=== PATIENT | male | born 1955 | race Caucasian/White ===

== ENCOUNTER 2024-03-17 03:44 | Inpatient (IN) | payer MEDICARE, SELFPAY ==
[2024-03-16 21:31] VITALS: BP 149/81
[2024-03-16] MEDS: TYLENOL/FEVERALL 650 MG RECTAL (21:38)
[2024-03-16 21:46] LABS: % Basophils 0.3 % (0-2); % Eosinophils 0.1 % (0-6); % Lymphocytes 6.8 % (20.5-51.1); % Neutrophils 88.8 % (42.2-75.2); Absolute Basophils 0.1 10^3/uL (0-0.2); Absolute Immature Granulocytes 0.2 10^3/uL (0-0.05); Absolute Monocytes 0.5 10^3/uL (0.1-0.6); Absolute Neutrophils 13.4 10^3/uL (1.4-6.5); Hematocrit 42.5 % (39.0-52.0); Hemoglobin 15.9 g/dL (13.0-18.0); Mean Corp Hgb Conc. 37.4 g/dL (33.0-37.0); Mean Corpuscular Hgb 31.9 pg (27.0-31.0); Mean Corpuscular Volume 85.3 fL (80.0-94.0); Mean Platelet Volume 9.1 fL (7.4-10.4); Nucleated Red Blood Cells % 0 % (-); Platelet Count 215 10^3/uL (130-400); Red Blood Cell Count 4.98 10^6/uL (4.70-6.10); Red Cell Dist. Width 13.2 % (11.5-14.5); White Blood Cell Count 15.1 10^3/uL (4.8-10.8)
[2024-03-16] MEDS: ATIVAN 0.5 MG IV ×2 (21:53→23:09)
--- NOTE | 2024-03-16 21:56 | ED.GENMED ---
History of Present Illness
General
Chief Complaint: Fever
Source: patient and ambulance crew
Exam Limitations: none
Time Seen by Provider: 03/16/24 21:38
Nursing documentation reviewed up to this point in time: agreed with
Travel History
Have you had any contact with someone who has COVID-19?: Unable to Answer
Do you have any symptoms of coronavirus? Fever > 100 degrees, chills, cough, shortness of breath, sore throat, loss of taste or smell, muscle aches, or headache?: Unable to Answer
History of Present Illness
History of Present Illness:
68-year-old male presents emergency department from home. He has had a fever for the past few days, and has increased confusion today. He cannot give a history.
Past History
Past History
ED Past Medical History: None
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
Social History
Tobacco: Smoker
Alcohol: Occasional
Drug: None
Personal:
Living: with family
Employment: Employed
Family History
Family History: CAD; Negative Early CAD, Cancer or Sudden
Review of Systems
Review of Systems
Allergies reviewed?: Yes
All Other Systems: Not applicable
Constitutional: Reports fever
ABD/GI: Reports diarrhea
Neurological: Reports other (Confusion)
Phy Exam
Physical Exam
Physical Exam:
Physical Exam
General: Agitated, fever 105.1
Neck: supple. no meningeal signs. normal posterior pharynx
Heart: s1/s2 regular rate and rhythm, no murmur. equal radial
pulses.
HEENT: Pupils equal round reactive to light, EOMI
Lungs: no acute respiratory distress. clear bilaterally
Abdomen: normal bowel sounds. not tender. no CVAT
Neuro: alert to person. no focal neurological deficits cranial nerves II through XII intact
Skin: no rash
Psychiatric: Agitated, not cooperative but redirectable
Extremities: no edema. no calf tenderness. negative homans. good distal pulses
Course
Orders/Labs/Results
Orders:
Orders
03/16/24 21:34
Electrocardiogram (*1) Urgent
Reason for Study: Other
Other Reason for Exam: Possible Sepsis
Cardiac Monitoring- Treatment ONCE
EKG- Treatment ONCE
IV Insert/Care/Rem.- Treatment PRN
O2 Therapy [RESP] Urgent
Titrate/Wean O2 to maintain O2 sat greater than (%): 93
Special Instructions: TO MAINTAIN CONTINUOUS O2 SATS > OR = 93%
Pulse Ox/cont/shift [RESP] Urgent
Quantity: 1
Special Instructions: CONTINUOUS
03/16/24 21:37
Complete Blood Count/With Diff Urgent
Comprehensive Metabolic Panel Urgent
Lactic Acid Q4H
Comment: ON ICE, CANCEL 2ND ORDER IF FIRST LACTIC ACID LEVEL <2
Serum Osmolality Urgent
Comment: ADD ON
Acetaminophen [Tylenol/Feverall] 650 mg .ROUTE .STK-MED ONE
03/16/24 21:38
Acetaminophen [Tylenol/Feverall] 650 mg RECTAL NOW STA
03/16/24 21:51
Lorazepam [Ativan] 2 mg .ROUTE .STK-MED ONE
03/16/24 21:52
Lorazepam [Ativan] 0.5 mg IV NOW STA
03/16/24 21:54
CR Chest Portable - 1 View Urgent
Comment:
Reason For Exam: fever
Reason Study Needs to be Portable: Patient Unstable
03/16/24 21:56
COVID-19 Antigen Urgent
Source: Nasal Swab
Blood Culture Q30M
LISETTE Source: Blood/Venous
Specimen Description:
Comment: FROM 2 SEPARATE SITES
Blood Culture Q30M
[place]TE Source: Blood/Venous
Specimen Description:
Comment: FROM 2 SEPARATE SITES
Influenza A+B Rapid Molecular Urgent
LISETTE Source: Nasal Swab
Specimen Description:
03/16/24 22:01
Osmolality, Random Urine Urgent
Date Specimen was Collected: 03/16/24
Time Specimen was Collected: 22:00
Comment: ADD ON
Urinalysis Reflex To Culture Urgent
Date Specimen was Collected: 03/16/24
Time Specimen was Collected: 22:00
Urine Microscopic Reflex Cult Urgent
Urine Sodium Urgent
Date Specimen was Collected: 03/16/24
Time Specimen was Collected: 22:00
Comment: ADD ON
Urine Culture Urgent
LISETTE Source: U
Specimen Description:
Date Specimen was Collected: 03/16/24
Time Specimen was Collected: 22:00
03/16/24 22:30
Add On- LAB Urgent
Tests Added?: urine sodium, urine osmolality, serum osmolality
03/16/24 22:49
CT Head W/o Iv Contrast Urgent
Comment:
Reason For Exam: confusion, bruising on nose
03/16/24 23:04
Lorazepam [Ativan] 0.5 mg IV NOW STA
03/17/24 00:06
Cefepime HCl [Maxipime] 2,000 mg IV NOW STA
03/17/24 00:10
Sterile Water [Sterile Water For Injection] 10 ml .ROUTE .STK-MED ONE
03/17/24 00:28
Vancomycin [Vancocin] 1,500 mg 0.9% Sodium Chloride [Nss] 20 ml 0.9% Sodium Chloride 250 ml [Nss] 250 ml IV NOW
03/17/24 01:00
3% Sodium Chloride 250 ml [Sodium Chloride 3%] 250 ml IV ONCE
Acetaminophen [Tylenol/Feverall] 650 mg RECTAL NOW STA
03/17/24 02:02
CPK [Creatine Phosphokinase] Urgent
03/17/24 02:03
Legionella Urinary Antigen Urgent
LISETTE Source: Urine
Specimen Description:
Strep pneumoniae Antigen Urgent
LISETTE Source: Urine
Specimen Description:
03/17/24 02:33
Admit/Transfer Patient As Directed
Co-Sign Provider:
Level of Care: Inpatient admission
Assign to:: ICU
Physician / Group: Iván
Diagnosis: Sepsis, Acute TME, Hyponatremia
Reason for Hospitalization: Sepsis, Acute TME
Expected length of stay greater than two midnights?: Yes
ELOS- Estimated Length of Stay in days: 4
I certify the patient meets the requirements for IP care: Yes
03/17/24 02:37
Code Status As Directed
Resuscitation Status: Full Code
Abnormal Lab Results
03/16/24 03/16/24
21:37 22:01
WBC 15.1 H 10^3/uL
(4.8-10.8)
MCH 31.9 H pg
(27.0-31.0)
MCHC 37.4 H g/dL
(33.0-37.0)
Abs Immat Gran (auto) 0.2 H 10^3/uL
(0-0.05)
Absolute Neuts (auto) 13.4 H 10^3/uL
(1.4-6.5)
Absolute Lymphs (auto) 1.0 L 10^3/uL
(1.2-3.4)
Immature Gran % 1.0 H %
(0-0.5)
Neutrophils % 88.8 H %
(42.2-75.2)
Lymphocytes % 6.8 L %
(20.5-51.1)
Sodium 120 L mmol/L
(135-145)
Chloride 89 L mmol/L
(98-107)
Carbon Dioxide 19 L mmol/L
(22-30)
Glucose 142 H mg/dl
(70-99)
Serum Osmolality 253 L mOsm/kg
(275-300)
AST 71 H U/L
(17-59)
Urine Ketones Trace A
(Negative)
Ur Occult Blood Reflex 4+ A
(Negative)
Urine Bilirubin 1+ A
(Negative)
Urine Urobilinogen 2+ A
(Neg - 1+)
Urine Bacteria (Reflex) Many A
(Negative)
Urine Albumin (Reflex) 1+ A
(Neg - Trace)
03/16/24 21:37
03/16/24 21:37
Vital Signs
Initial and Last Documented VS:
Initial Vital Signs
Temp Pulse Resp BP Pulse Ox
105.1 F H 123 30 149/81 96
03/16/24 21:31 03/16/24 21:31 03/16/24 21:31 03/16/24 21:31 03/16/24 21:31
Last Documented Vital Signs
Temp Pulse Resp BP Pulse Ox
102.7 F H 104 37 148/67 94
03/17/24 02:46 03/16/24 22:30 03/16/24 22:15 03/16/24 22:00 03/16/24 22:30
*EKG
Interpreted by ED Provider?: Yes
EKG Intrepretation Date: 03/16/24
EKG Intrepretation Time: 21:42
Interpretation: abnormal
Comparison EKG: no comparison EKG present
Heart Rate: 125
Rate: tachycardiac
Rhythm: sinus tachycardia
[place]: normal axis
Interval: normal interval
QRS Pattern: normal QRS
Ischemia: non-specific ST changes
*Knowledge Analyst Interpretation
Rate: tachycardiac
Interpretation: abnormal
Heart Rate: 115
Rhythm: sinus tachycardia
*Critical Care Note
Total Time (30-74mins, 75-104mins- exclusive of procedures): 30
comment:
Critical care statement: A total of 30 minutes of critical care time was provided for this patient. This includes management of unstable vital signs, evaluation of the patient at bedside, reviewing the patient's pertinent medical records, discussion
with consultants, review of old EKGs and review of pertinent medical records. This time with separate from time utilized to perform the aforementioned documented procedures
Patient Management
Social determinants of health affecting care: Living situation
Discussion with other providers: Hospitalist
Escalation/DeEscalation of care consider admission/obs:
Admit indicated
ED Attending Note
-
Portions of this chart may have been created with voice recognition software.� Occasional wrong word or��sound alike� substitutions may have occurred due to the inherent limitations of voice recognition software.
Discharge Plan
Departure
Patient Disposition: Admit
Date of Disposition: 03/17/24
Time of Disposition: 00:09
Admit to: ICU
Presentation/result/management discussed w/ accepting MD/DO: Hospitalist
Patient with high blood pressure during this ER visit?: Yes
Condition: Fair
Discharge Problem:
Acute hyponatremia, Pneumonia, Altered mental status, Fever
Prescriptions:
No Action
No Current Medications
0
Referrals:
UNKNOWN - PT NOT,INTERVIEWE [Family Provider] -
Interventions
Interventions:
*Risk Screen - Suicide Last Done: 03/16/24 21:31
*General Assessment Last Done: 03/16/24 21:31
*Neglect/Abuse Screening Last Done: 03/16/24 21:31
ED- Fall Risk Assessment Last Done: 03/16/24 22:07
*ED COVID-19 Vaccine History Last Done: 03/16/24 21:31
ED- Neurological Assessment Last Done: 03/16/24 22:07
ED-Skin Assessment Last Done: 03/16/24 22:07
Discharge Date and Time
Print Language: SLOVAK
[2024-03-16 21:58] LABS: Lactic Acid 1.4 mmol/L (0.7-2.0)
[2024-03-16 22:00] VITALS: BP 148/67
[2024-03-16 22:05] LABS: ALT (SGPT) 38 U/L (0-50); AST (SGOT) 71 U/L (17-59); Albumin 3.8 g/dl (3.5-5.0); Alkaline Phosphatase 83 U/L (38-126); Blood Urea Nitrogen 13 mg/dl (9-20); Calcium 8.7 mg/dl (8.4-10.2); Carbon Dioxide 19 mmol/L (22-30); Chloride 89 mmol/L (98-107); Glucose 142 mg/dl (70-99); Sodium 120 mmol/L (135-145); Total Bilirubin 0.8 mg/dl (0.2-1.3); Total Protein 6.9 g/dl (6.3-8.2); eGFR > 60.00
[2024-03-16 22:12] LABS: Urine Albumin 1+ (Neg - Trace); Urine Bilirubin 1+ (Negative); Urine Character Clear (Clear); Urine Color Yellow; Urine Glucose Negative (Negative); Urine Ketone Trace (Negative); Urine Leukocyte Negative (Negative); Urine Nitrite Negative (Negative); Urine Occult Blood 4+ (Negative); Urine Urobilinogen 2+ (Neg - 1+)
[2024-03-16 22:21] LABS: Urine Red Blood Cell 0-2 /HPF (0-2)
[2024-03-16 22:24] LABS: Urine Bacteria Many (Negative)
[2024-03-16 22:32] LABS: COVID-19 Antigen Negative (Negative)
[2024-03-16 22:40] LABS: Osmolality Urine 801 mOsm/kg (300-900)
[2024-03-16 22:50] LABS: Osmolality Serum 253 mOsm/kg (275-300)
[2024-03-16 23:12] VITALS: BP 102/49
[2024-03-16 23:36] LABS: Urine Sodium 81 mmol/L (30-90)
[2024-03-16 23:47] VITALS: BP 90/52
[2024-03-17] VITALS (27 sets, daily range): BP systolic 85–128; BP diastolic 38–87; BMI 24.3; BMI 23.2
[2024-03-17] MEDS: MAXIPIME 2000 MG IV ×2 (00:45→07:25)
[2024-03-17] MEDS: VANCOCIN 300 ML IV (00:46)
[2024-03-17] MEDS: SODIUM CHLORIDE 3% 250 IV (00:46)
[2024-03-17] MEDS: VANCOCIN 300 MG IV (00:46)
[2024-03-17] MEDS: TYLENOL/FEVERALL 650 MG RECTAL (01:06)
--- NOTE | 2024-03-17 02:43 | HPS.HSE ---
Family Physician
-
Family Physician: INTERVIEWE UNKNOWN - PT NOT
Chief Complaint
-
Confusion / Agitation
History of Present Illness
Patient is a 68y M with no significant PMH who presents to ED for evaluation of confusion and falls. History obtained from family at the bedside and discussion with ED staff.
Family notes that patient began to have symptoms including cough, fevers and aches this past weekend. He presumed he had the flu and drank Gatorade, took Tylenol, etc with some relief in his symptoms. His initial cough seemed to improve per
family; however, patient continued to complain of feeling 'sick'. Patient then developed diarrhea / loose stools and had an episode of incontinence yesterday.
Today, he went to work as usual and seemed his usual self according to family.
This afternoon his returned home to find him very confused and somewhat agitated. Patient was trying to put on a blanket as if it were his pants. He was speaking gibberish / nonsense.
He was unsteady on his feet and had a total of 3 falls at home. He had two additional episodes of loose stools / incontinence at some point during the day.
Patient has had no recent travel. There are no known sick contacts.
He takes no daily medications.
Medical History
Past Medical History
Past Medical History: Reports None
Past Surgical History: Reports Other
Additional Past Surgical History:
Hernia Repair (12/2023)
Social History
Tobacco: Smoker (Current every day smoker. 1 ppd for > 50 pack years total use.)
Alcohol: None
Drug: None
Personal:
Living: With Family
Family History
Family History: Other (Father: CAD, CHF Mother: Lung Cancer)
Allergies / Home Medications
Allergies reflects when Allergies were last updated in [facility].
Home Medications with original date entered in [facility]
Allergy/Medication List:
Allergies
Allergy/AdvReac Type Severity Reaction Status Date / Time
Sulfa (Sulfonamide Allergy Unknown Unknown Verified 03/16/24 22:56
Antibiotics)
[Sulfa(Sulfonamide
Antibiotics)]
Home Medications
No Meds [No Current Medications] 03/16/24
Review of Systems
-
History Source: Family
A 12 point ROS was completed and negative except as noted: Yes
Constitutional: Reports Fever and Fatigue; Denies Chills
EENT: Denies Sore Throat
Respiratory: Reports Cough; Denies Trouble Breathing
Cardiac: Denies Chest Pain or Palpitations
Abdomen/GI: Reports Nausea, Diarrhea and Anorexia; Denies Abdominal Pain or Vomiting
: Denies Dysuria, Frequency or Flank Pain
Neurological: Reports Other (Falls at home / gait disturbance.)
Psych: Denies Depression or Anxiety
Physical Exam
Vital Signs
Vital Signs
Temp Pulse Resp BP Pulse Ox
104.7 F H 104 37 148/67 94
03/16/24 23:08 03/16/24 22:30 03/16/24 22:15 03/16/24 22:00 03/16/24 22:30
Physical Exam
General: Other (68y M acutely ill-appearing. Confused and mildly agitated / restless.)
HEENT: Other (Dry MM. No JVD or adenopathy.)
Respiratory: Other (Scattered coarse breath sounds. No wheezing.)
Cardiac: S1/S2 and Tachycardia; No Murmur
GI: Soft, Non Tender, Non Distended and Normal Bowel Sounds
Musculoskeletal: No Clubbing, No Cyanosis and No Edema
Neuro: Other (Confused, lethargic. Restless. No focal abnormalities. Moves all extremities.)
Laboratory Results
-
03/16/24 21:37
03/16/24 21:37
Laboratory Results
Lactic Acid 1.4 mmol/L (0.7-2.0) 03/16/24 21:37
Total Bilirubin 0.8 mg/dl (0.2-1.3) 03/16/24 21:37
AST 71 U/L (17-59) H 03/16/24 21:37
ALT 38 U/L (0-50) 03/16/24 21:37
Alkaline Phosphatase 83 U/L (38-126) 03/16/24 21:37
Impression/Plan
-
A/P: Patient is a 68y M with no noted PMH who presents to ED with abrupt onset confusion and unsteady gait this afternoon after recent illness.
Sepsis
Acute TME secondary to the above
- Admit to ICU for further evaluation and treatment.
- Patient presents with fever to 105, leukocytosis, tachycardia and tachypnea.
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
- COVID and influenza are negative in the ED - though symptoms / presentation certainly c/w severe viral syndrome.
- Broad spectrum abx coverage for now.
- Follow-up culture data and adjust as able.
- Add on stool studies given recent diarrhea / incontinence.
- ID evaluation for additional recommendations.
- If mental status does not improve despite antipyretics, would consider LP.
- Supportive care including antipyretics, antiemetics.
- Would bolus IVFs for any developing hypotension - though initial lactate level was normal.
- Follow for any new symptoms and / or clinical changes.
Hyponatremia
- Na = 120 with no prior history of hyponatremia.
- Seems most likely secondary to SIADH secondary to sepsis, recent increased fluid intake, etc.
- CT head was unremarkable.
- Presenting symptoms: confusion, ataxia, etc - potentially secondary to fever / sepsis versus hyponatremia or - more likely - a combination thereof.
- 3% saline recommended by Nephrology. Repeat Na level 4 AM and adjust fluids as needed.
- As noted above, would administer volume if needed for BP / perfusion in setting of sepsis.
- Check TFTs, cortisol, etc.
'Hematuria'
- 4+ blood on UA with negative RBCs on micro.
- Mildly elevated AST on labs.
- Check CPK for evidence of significant rhabdomyolysis.
- As above, may require IVFs / volume replacement for additional treatment if this is the case.
DVT Prophylaxis: Lovenox
Code Status: Full
[2024-03-17 03:44] LABS: Creatine Phosphokinase 399 U/L (55-170)
--- NOTE | 2024-03-17 04:37 | PTCARENOTE ---
Addendum entered by Leticia Ferris RN 03/17/24 04:43:
3% saline infusing through right forearm INT.
Original Note:
Rec'd patient from the ED. Patient drowsy but arousable. Answering questions appropriately. Patient states no recollection of how he got here or prior events. Currently AAOx3. ST on tele monitor with PACs and PVCs. Vitals stable. Lung sounds
diminished throughout. Pulse ox 92% on RA. Tachypneic with RR in the 30's. Denies dyspnea. +BS. No BM. Skin assessed. Abrasions noted on nose and left ear from prior falls. Scabbed and open to air. Patient denies pain. Bed alarm on and safe
environment maintained. Repeat Na sent.
[2024-03-17 04:41] LABS: Hematocrit 45.5 % (39.0-52.0); Hemoglobin 16.1 g/dL (13.0-18.0); Mean Corp Hgb Conc. 35.4 g/dL (33.0-37.0); Mean Corpuscular Hgb 31.3 pg (27.0-31.0); Mean Corpuscular Volume 88.3 fL (80.0-94.0); Mean Platelet Volume 9.4 fL (7.4-10.4); Platelet Count 184 10^3/uL (130-400); Red Blood Cell Count 5.15 10^6/uL (4.70-6.10); Red Cell Dist. Width 13.1 % (11.5-14.5); White Blood Cell Count 17.2 10^3/uL (4.8-10.8)
[2024-03-17] MEDS: VIBRAMYCIN 260 MG IV (05:01)
[2024-03-17 05:03] LABS: INR 1.21; PT 15.4 Sec (11.4-14.6)
[2024-03-17 05:13] LABS: ALT (SGPT) 51 U/L (0-50); AST (SGOT) 89 U/L (17-59); Albumin 3.4 g/dl (3.5-5.0); Alkaline Phosphatase 67 U/L (38-126); Blood Urea Nitrogen 15 mg/dl (9-20); Calcium 8.2 mg/dl (8.4-10.2); Carbon Dioxide 19 mmol/L (22-30); Chloride 96 mmol/L (98-107); Direct Bilirubin 0.6 mg/dl (0.0-0.4); Estimated Creatinine Clearance 94 ml/min; Glucose 109 mg/dl (70-99); Magnesium 1.4 mg/dl (1.6-2.3); Potassium 3.8 mmol/L (3.5-5.1); Sodium 122 mmol/L (135-145); Total Bilirubin 0.9 mg/dl (0.2-1.3); Total Protein 6.5 g/dl (6.3-8.2); eGFR > 60.00
[2024-03-17 05:20] LABS: Troponin I 0.042 ng/ml
[2024-03-17 05:38] LABS: Cortisol, Random 54.7 ug/dl; TSH Reflex To Free T4 1.03 uIU/ml (0.47-4.68)
[2024-03-17] MEDS: MAGNESIUM SULFATE 50 IV (06:13)
--- NOTE | 2024-03-17 07:13 | PTCARENOTE ---
0700 patient received in bed. AAO x3 Denies pain. Denies Nausea. Neuro check WNL; BP via left upper arm : 112/81 ST 102 RR 31; 91-94RA. oral temp 100.4; peripheral lines RT arm #18 : NSS 3% at 25/hr; Left arm : flushed, capped. Lungs clear. No
edema. call ngo within reach
--- NOTE | 2024-03-17 07:15 | CON.INTV ---
Consultation
Consultation Request
Date/Time Consultation Requested: 03-17-24
Date/Time Consultation Performed: 03-17-24
Requesting Provider: Hospitalist zoraida
Performing Provider: Dr Jimenes
Reason for Consultation: confusion
Medical History
-
Chief Complaint: confusion
History of Present Illness:
Mr Ramses Rg is a 68/M adm 03-16 with acute confusion and falls at home. Reportedly developed cough, fever and aches over the weekend, thought he had the flu and took OTC APAP with some relief, then developed diarrhea. Returned from work on
03-16, found by very confused, somewhat agitated and with nonsensical talk, sustained up to 3 falls at home, presented diarrhea with fecal incontinence. Besides h/o splenectomy at age 14 (trauma), ankle surgeries, hernia repair in Dec 2023 and
heavy smoking, no other PMH, not on prescribed meds. At ER, fever 104.7, mild tachycardia, tachypnea, hypertension, serum Na 120
Seen at ICU, MS back to normal, receiving 3% saline IV
Denies dyspnea, reports chronic smoker's cough with no recent change. Not on outpatient prescribed meds. Heavy smoking for last 50+y. 4 decades work in [employer]
Denies abd pain, diarrhea has subsided
Denies recent use of atbs
Past Medical History
Past Surgical History: Other (hernia repair. Splenectomy)
Social History
Tobacco: Smoker
Alcohol: Other (marijuana)
Drug: None
Personal:
Living: With Family
Employment: Employed
Family History
Family History: CAD (F: CAD, CHF) and Cancer (M: lung)
Allergies / Home Medications
Allergies
Allergy/AdvReac Type Severity Reaction Status Date / Time
Sulfa (Sulfonamide Allergy Unknown Unknown Verified 03/16/24 22:56
Antibiotics)
[Sulfa(Sulfonamide
Antibiotics)]
Home Medications
�Medication �Instructions �Recorded �Confirmed �Last Taken �Type
No Meds [No Current Medications] 03/16/24 03/16/24 Unknown History
Review of Systems
-
History Source: Patient
All other systems: Negative unless noted
Abdomen/GI: Diarrhea
Neuro: Weakness
Vitals / Labs / Diagnostic Testing
Vital Signs
Temp Pulse Resp BP Pulse Ox
100.4 F H 110 32 110/78 93
03/17/24 07:10 03/17/24 06:00 03/17/24 06:00 03/17/24 06:00 03/17/24 06:00
Lab Data
03/17/24 04:30
03/17/24 04:30
Laboratory Results
03/17/24
04:30
PT 15.4 H
INR 1.21
APTT 35.0
Microbiology
03/16/24 21:56 Nasal Swab Influenza Types A & B (ALISON) - Final
Negative for Influenza A & B, NAAT
Negative results must be combined with clinical observations
and patient history.
Nucleic Acid Amplification test (NAAT)performed on the
[facility] platform.
Diagnostic Testing:
Physical Exam
-
HEENT: Normocephalic and Moist Mucous Membranes
Cardiovascular: Regular Rhythm, Murmur (n), Peripheral Edema and JVD
Respiratory: Rhonchi and Non-Labored Respirations
GI: Soft, Non Distended and Non Tender
Neurology: Awake, AO x 3 and No Motor Deficits
Skin: Warm
General: Respiratory Distress (n)
Assessment
-
Assessment:
Mr Ramses Rg is a 68/M adm 03-16 with acute confusion and falls at home. Reportedly developed cough, fever and aches over the weekend, thought he had the flu and took OTC APAP with some relief, then developed diarrhea. Returned from work on
03-16, found by very confused, somewhat agitated and with nonsensical talk, sustained up to 3 falls at home, presented diarrhea with fecal incontinence. Besides h/o splenectomy at age 14 (trauma), ankle surgeries, hernia repair in Dec 2023 and
heavy smoking, no other PMH, not on prescribed meds. At ER, fever 104.7, mild tachycardia, tachypnea, hypertension, serum Na 120
Impression:
Severe hyponatremia
TME
GPC chains bacteriemia, unknown source
Elevated PCT
Mild transaminitis, ^CK
Troponin elevation
Normal TSH and random cortisol
Hematuria, bacteriuria, albuminuria
COVID/flu negative
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
Ankle surgeries
Hernia repair in Dec 2023
Smoker: 1 ppd for 50+ y
Marijuana smoking
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 Denies sandblasting, mining, quarrying, ceramic work
Plan:
O2 protocol as needed
Currently resp mares comfortable on RA
Asp precs
Monitor MS, seems has recovered to normal at this juncture
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
Blood cxs with GPC chains, unkown source
UCx, MRSA screening pending
Sputum cx ordered
Elevated PCT
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
Empiric atbs started: cefepime, vanco, doxy IV
May need chest CT
Note h/o splenectomy
ID consulted
Continue 3% saline IV
Follow serum Na closely
Laureen>40 and Uosm>100, normal TSH c/w SAIDH of unknown etiology
Not on medications which could cause SAIDH, but tobacco dependence
SIADH in this case could be secondary to pulmonary disease or malignancy
Check UDS, HIV
Renal consulted
Regular diet
Enoxaparin DVT proph
Needs to follow with [facility] upon d/c
D/w Mr and Mrs Rg and their son at bedside
Critical care time: 35 min
[2024-03-17] MEDS: PROTONIX IV 40 MG IV (07:24)
[2024-03-17] MEDS: TYLENOL 650 MG PO ×2 (07:24→21:30)
[2024-03-17] MEDS: NSS (PRESERVATIVE FREE) 10 ML IV (07:25)
[2024-03-17] MEDS: STERILE WATER FOR INJECTION 10 ML IV (07:25)
--- NOTE | 2024-03-17 07:58 | W.PN.HOSP.TC ---
Today's Communication/Plan
-
see A/P
Assessment / Plan
Assessment / Plan
HPI: 68y M with no significant PMH who presented to ED for evaluation of confusion and falls. History obtained from family at the bedside and discussion with ED staff.
Family notes that patient began to have symptoms including cough, fevers and aches this past weekend. He presumed he had the flu and drank Gatorade, took Tylenol, etc with some relief in his symptoms. His initial cough seemed to improve per
family; however, patient continued to complain of feeling 'sick'. Patient then developed diarrhea / loose stools and had an episode of incontinence.
On DOA, he went to work as usual and seemed his usual self according to family.
In the afternoon his returned home to find him very confused and somewhat agitated. Patient was trying to put on a blanket as if it were his pants. He was speaking gibberish / nonsense.
He was unsteady on his feet and had a total of 3 falls at home. He had two additional episodes of loose stools / incontinence at some point during the day.
Patient has had no recent travel. There are no known sick contacts.
He takes no daily medications.
A/P:
# Sepsis POA. Patient presented with fever to 105, leukocytosis, tachycardia and tachypnea.
# Acute TME secondary to the above
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 There are no acute intracranial abnormalities.
Admit to ICU for further evaluation and treatment.
Potential sources of infection include pulmonary v INPATIENT SERVICES RN v others.
COVID and influenza are negative in the ED - though symptoms / presentation certainly c/w severe viral syndrome.
Check procal, follow blood Cx, urine Cx, Lyme serology
Urine Legionella/Strep Ag negative
Add on stool studies given recent diarrhea / incontinence.
Cont Broad spectrum abx coverage for now with cefepime/vancomycin
ID evaluation for additional recommendations.
If mental status does not improve despite antipyretics, would consider LP.
Cont supportive care including antipyretics, antiemetics.
# Hyponatremia, no prior history of hyponatremia.
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
CT head was unremarkable.
Na on admission 120, today at 122
3% saline recommended by Nephrology.
TSH and random cortisol level WNL
# Mild rhabdomyolysis
CPK slightly elevated at 399, can start IVF
trend CPK
# Non-ischemic myocardial injury
Pt denies to CP
Trend trop until peak
# Hypomagnesemia
replete IV
# Elevated LFT likely reactive
trend LFT
DVT Prophylaxis: Lovenox
Code Status: Full
DW RN
updated on the phone
CC Mx for severe hyperthermia and infectious work up
total time spent 51 min
Anticipated Discharge: > 48 hours
Subjective/Interval History
-
Date of Service: March 17, 2024
Objective Data
-
Labs:
Laboratory Results
03/16/24 03/17/24 03/17/24
21:37 04:30 04:30
WBC 15.1 H 17.2 H
Hgb 15.9 16.1
Hct 42.5 45.5
Plt Count 215 184
PT 15.4 H
INR 1.21
APTT 35.0
Sodium 120 L Cancelled 122 L
Potassium 4.0 3.8
Chloride 89 L 96 L
Carbon Dioxide 19 L 19 L
BUN 13 15
Creatinine 0.9 0.8
Glucose 142 H 109 H
Calcium 8.7 8.2 L
Total Bilirubin 0.8 0.9
AST 71 H 89 H
ALT 38 51 H
Alkaline Phosphatase 83 67
Vital Signs:
Vital Signs
Temp Pulse Resp BP Pulse Ox
38.0 C H 99 32 112/81 90
03/17/24 07:10 03/17/24 07:45 03/17/24 07:45 03/17/24 07:00 03/17/24 07:45
I&O
03/16/24 03/17/24 03/18/24
06:59 06:59 06:59
Intake Total 385 / 410
Balance 385 / 410
Review of Systems
-
All other systems: Reviewed and negative
Physical Exam
-
General: Well Developed, Well Nourished, No Apparent Distress, Comfortable and Conversant; Negative Respiratory Distress
HEENT: Normocephalic, Atraumatic, Nose Appears Normal and Ears Appear Normal; Negative Oxygen
Respiratory: Clear to Auscultation and Non Labored Respirations; Negative Accessory Resp Muscle Use
Cardiac: S1/S2, Irregular Rhythm and Tachycardic
GI: Soft, Nontender, Nondistended and Normal Bowel Sounds
Skin: Warm and Dry
Neuro: Awake, Alert and Nonfocal/Grossly Intact
Psych: Calm and Intact Judgement/Insight (somewhat)
Data Reviewed
-
Diagnostic Radiology: Report Reviewed by me
CT Scan: Report Reviewed by me
Labs: Labs Reviewed by me
[2024-03-17] MEDS: NSS 1000 IV (08:00)
--- NOTE | 2024-03-17 09:52 | PTOTSP ---
Dysphagia Evaluation
Risk for acute dysphagia is elevated by TME. However, patient was able to participate in evaluation appropriately without difficulty. He presents with functional oral/pharyngeal stages of swallowing. No signs concerning for aspiration observed.
Recommend:
1. Regular, Thin Liquids
2. Medications as best tolerated
3. Pick soft/moist foods as needed until partials present
4. General aspiration and reflux precautions
5. No further dysphagia therapy warranted at the acute care level. Please reconsult as appropriate.
[2024-03-17 10:54] LABS: Procalcitonin 3.47 ng/ml (0.0-0.25)
--- NOTE | 2024-03-17 10:58 | CM ---
Patient seen at bedside in ICU. Patient stated that he lives with his family of 4 in a 2 story home Patient has no DME and PCP is Dr. Willard. Per patient he last saw his pcp for a hernia about 2 months ago. Patient uses the [facility] [address]
[place]. Patient stated he does not take any suppliments. Patient indicated that he plans to go home with his family. CM will continue to follow for discharge planning needs.
Plan home with no needs vs home with VN; watch for PT/OT recommendations
--- NOTE | 2024-03-17 11:12 | PTCARENOTE ---
NSS 3% completed at 11:12. BMP will be rechecked at 1300
--- NOTE | 2024-03-17 11:26 | W.CON.NEPH ---
Consultation
-
Date/Time Consultation Requested: 03/17/24 3:57AM
Date/Time Consultation Performed: 03/17/24 11:27AM
Requesting Provider: Scott Minor
Performing Provider: Drea Leiva
Reason for Consultation: hyponatremia
Medical History
-
Chief Complaint: hyponatremia
History of Present Illness:
Mr. Rg is a 68YOM with no significant PMH who presents to the ED for confusion falls and fevers. He states that he had begun to have some symptoms of cough and fevers over the past weekend but still went to work on Thursday. Unfortunately, he
took off on Thursday/Thursday due to his fevers. States that he thought he had the flu and was drinking a lot of water but not eating much. Had some nausea, diarrhea, loose stools. According to the admission note, it states that his found him
very confused. He seems to have a better mental status at the time of our discussion.
Past Medical History
Past Medical History: None
Past Surgical History: Other (hernia repair)
Social History
Tobacco: Smoker (1 ppd. >50 pack years)
Alcohol: None
Drug: Marijuana
Personal:
Living: With Family
Employment: Employed
Family History
Family History: Not Pertinent
Allergies / Home Medications
Allergy/AdvReac Type Severity Reaction Status Date / Time
Sulfa (Sulfonamide Allergy Unknown Unknown Verified 03/16/24 22:56
Antibiotics)
[Sulfa(Sulfonamide
Antibiotics)]
�Medication �Instructions �Recorded �Confirmed �Type
No Meds [No Current Medications] 03/16/24 03/16/24 History
Review of Systems
-
History Source: Patient
All other systems: Negative unless noted
Constitutional: Fever, Fatigue and Sleep Disturbance
Respiratory: Cough
Abdomen/GI: Nausea and Diarrhea
Physical Exam
Vital Signs
Vital Signs
Temp Pulse Resp BP Pulse Ox
100.4 F H 99 32 112/81 90
03/17/24 07:10 03/17/24 07:45 03/17/24 07:45 03/17/24 07:00 03/17/24 07:45
Lab Results
WBC 17.2 10^3/uL (4.8-10.8) H 03/17/24 04:30
RBC 5.15 10^6/uL (4.70-6.10) 03/17/24 04:30
Hgb 16.1 g/dL (13.0-18.0) 03/17/24 04:30
Hct 45.5 % (39.0-52.0) 03/17/24 04:30
Plt Count 184 10^3/uL (130-400) 03/17/24 04:30
eGFR > 60.00 03/17/24 04:30
Albumin 3.4 g/dl (3.5-5.0) L 03/17/24 04:30
Physical Exam
General: AOx3, No Distress and Nontoxic
HEENT: PERRL, EOMI, Anicteric, Conjunctivae Clear, Ear/Nose Intact, Hearing Normal and Oropharynx Clear/Moist
Respiratory: Clear
Cardiac: S1/S2, Regular Rate/Rhythm and No Edema
Breast: N/A
Abdomen: Soft, Nontender, Nondistended and Normal Bowel Sounds
Musculoskeletal: No Clubbing, No Cyanosis and No Edema
Skin: No Rash, Warm, Dry and Normal Turgor
Neuro: Nonfocal/Grossly Intact
Psych: Mood/afflect pleasant, Insight/judgement good and Appropriate
Data Reviewed
-
Radiology: Image Personally Visualized and interpreted (fluffy white infiltrates noted bilaterally. c/f PNA)
CT Scan: Report Reviewed by me (Old 1 cm infarct in the lateral aspect of the left cerebellar hemisphere There are no acute intracranial abnormalities. There is mild diffuse cortical atrophy with mild nonspecific white matter changes as described
above. )
Labs: Labs Reviewed by me and Discussed with Patient
Old Records: Reviewed
Assessment/Plan
-
Assessment:
Sepsis
Toxic metabolic encephalopathy
Hyponatremia
HypoMg
Plan:
- urine osm of 801 and urine Na of 81 very consistent with SIADH
- stop normal saline as this will cause Na to drop. initiate 3% at 40cc/hr.
- goal for 130+ by tomorrow AM BP check
- due to his urine osm of 801, he might require lasix to increase free water excretion but will see Na on next check prior to initiating
- check TSH (especially in the setting of very very mild CPK elevation)
- check BMP q6h
- CK of 399 does not meet criteria for rhabdo
--- NOTE | 2024-03-17 12:12 | CON.ID ---
Consultation
-
Date/Time Consultation Requested: 03/17/2024 03:57
Date/Time Consultation Performed: 03/17/2024 1200
Requesting Provider: Dr. Minor
Performing Provider: Dr. Barker
Reason for Consultation: Fever; splenectomy
Chief Complaint / Past History
History of Present Illness
Ramses Rg is a 68-year-old man being evaluated at the request of Dr. Minor in regards to fever and history of splenectomy. History is obtained from chart review, along with patient interview. Additionally, history was obtained from the patient's
who is at the bedside.
The patient was in his usual state of health until approximately 4 days ago when he woke up feeling achy and sick. He thought he might have the flu and took some Gatorade. The next morning he developed a headache and stayed home from work. He
additionally admitted to some cough. The next day he felt estimator binding the morning and had some soup for lunch. Later in the day he developed a fever to 103 degrees and had some fecal incontinence. Yesterday, he was again incontinent of stool. Later
in the afternoon he had a change in mental status noted with generalized confusion, and mild combativeness. Ultimately his called EMS and the patient was brought to the ER via ambulance. The patient was started on empiric antibiotics in the
ER. Blood cultures obtained at that point are now positive for gram-positive cocci in chains.
At this time. The patient reports feeling improved. He denies significant cough. He denies any significant headache. He denies any abdominal pain. There have been no sick contacts.
An additional history, the patient reports a splenectomy at age [age] years old. He does not believe he received any postsplenectomy immunizations either at that time or in the subsequent years.
Past History
Past Surgical History: None
Additional Past Surgical History:
Splenectomy (at age 14 years)
Achilles tendon repair
Ankle surgery
Hernia repair
Allergy History:
Sulfa (Sulfonamide Antibiotics) [Sulfa(Sulfonamide Antibiotics)] Allergy (Unknown, Verified 03/16/24 22:56)
Unknown
Medications Reviewed: Yes
Current Antibiotics:
Vancomycin
Cefepime
Social History
Tobacco: Smoker (1 pack/day)
Alcohol: Occasional
Drug: None
Personal:
Living: With Family
Employment: Employed ([employer])
Family History
Family History: Not Pertinent
Review of Systems
Vital Signs
Temp Pulse Resp BP Pulse Ox
100.4 F H 99 32 112/81 90
03/17/24 07:10 03/17/24 07:45 03/17/24 07:45 03/17/24 07:00 03/17/24 07:45
Physical Exam
Physical Exam
Constitutional: No Acute Distress, Comfortable and Non-toxic
Head: Normocephalic
Eyes: No Conjunctival Hemorrhage and Sclera Anicteric
Pharynx: Benign
Oral: No Thrush and No Ulcers
Cardiovascular: Regular Rate and S1/S2; Negative S3/S4 or Murmur
Pulmonary: Clear and Non Labored; Negative Wheezes, Rales or Rhonchi
Gastrointestinal: Soft, Non Tender, Non Distended, Normal Bowel Sounds, No Rebound and No Guarding
Extremities: Pulses; Negative Edema, Cyanosis, Erythema, Splinter Hemorrhage, Venous Insufficiency or Janeway Lesions
Skin: Warm and Dry; Negative Rash or Jaundice
Neurological: Awake, Alert and Oriented
Psychological: Calm
Lab / Diagnostic Study Results
03/17/24 04:30
Abs Immat Gran (auto) 0.2 10^3/uL (0-0.05) H 03/16/24 21:37
Absolute Neuts (auto) 13.4 10^3/uL (1.4-6.5) H 03/16/24 21:37
Absolute Lymphs (auto) 1.0 10^3/uL (1.2-3.4) L 03/16/24 21:37
Absolute Monos (auto) 0.5 10^3/uL (0.1-0.6) 03/16/24 21:37
Absolute Basos (auto) 0.1 10^3/uL (0-0.2) 03/16/24 21:37
Immature Gran % 1.0 % (0-0.5) H 03/16/24 21:37
Neutrophils % 88.8 % (42.2-75.2) H 03/16/24 21:37
Lymphocytes % 6.8 % (20.5-51.1) L 03/16/24 21:37
Monocytes % 3.0 % (1.7-9.3) 03/16/24 21:37
Eosinophils % 0.1 % (0-6) 03/16/24 21:37
Basophils % 0.3 % (0-2) 03/16/24 21:37
PT 15.4 Sec (11.4-14.6) H 03/17/24 04:30
INR 1.21 03/17/24 04:30
Lactic Acid 1.4 mmol/L (0.7-2.0) 03/16/24 21:37
Procalcitonin 3.47 ng/ml (0.0-0.25) H* 03/17/24 10:08
Microbiology Results
Micro:
03/16/24 21:56 Blood Culture - Preliminary
Blood/Venous Streptococcus pyogenes
Gram Stain - Final
03/17/24 10:03 Nasal Screen MRSA (PCR) - Pending
Nose
03/16/24 21:56 Blood Culture - Preliminary
Blood/Venous Positive culture in progress
Gram Stain - Final
03/16/24 22:01 Legionella Urinary Antigen - Final
Urine Negative for Legionella pneumophila Serogroup 1 antigen.
A negative result does not rule out the possiblity of
Legionella infection due to other serogroups or species of
Legionella. Clinical correlation is recommended.
Streptococcus pneumoniae Antigen (M - Final
Negative for Streptococcus pneumoniae antigen.
A negative result does not exclude infection with
Streptococcus pneumoniae. Clinical correlation is
recommended.
03/16/24 21:56 Influenza Types A & B (ALISON) - Final
Nasal Swab Negative for Influenza A & B, NAAT
Negative results must be combined with clinical observations
and patient history.
Nucleic Acid Amplification test (NAAT)performed on the
[employer] platform.
03/16/24 22:01 Urine Culture - Pending
Urine
Assessment / Plan
Group A strep bacteremia
Leukocytosis
Encephalopathy; likely TME
Transaminitis
Hx splenectomy
Recommendations:
Given recovery of group A strep, transition antibiotic coverage to ceftriaxone 2 g IV every 24 hours.
Repeat blood cultures to assess clearance.
Monitor white count and temperature curve.
[2024-03-17] MEDS: SODIUM CHLORIDE 3% 500 IV (12:23)
--- NOTE | 2024-03-17 12:37 | PTCARENOTE ---
per Dr Bowser NSS 60 d/c. Sodium 3% in 500 ml at 40 initiated. BMP and TSH send. pt voided mixed with BM loose . post void residual scanned for 400. Tolerating food and liquid without difficulties. SR 82 oral temp 98.0. pt AAO x3. Unsteady gait BP
stable
[2024-03-17 13:49] LABS: Blood Urea Nitrogen 14 mg/dl (9-20); Calcium 8.1 mg/dl (8.4-10.2); Carbon Dioxide 22 mmol/L (22-30); Chloride 97 mmol/L (98-107); Estimated Creatinine Clearance 94 ml/min; Glucose 92 mg/dl (70-99); Potassium 4.1 mmol/L (3.5-5.1); Sodium 125 mmol/L (135-145); eGFR > 60.00
[2024-03-17 14:59] LABS: TSH 1.58 uIU/ml (0.47-4.68)
[2024-03-17] MEDS: ROCEPHIN 2000 MG IV (15:01)
[2024-03-17] MEDS: STERILE WATER FOR INJECTION 20 ML IV (15:01)
[2024-03-17 15:35] LABS: Lyme Antibody Screen, EIA Negative (Negative)
[2024-03-17] MEDS: LOVENOX 40 MG SC (17:59)
--- NOTE | 2024-03-17 18:02 | PTCARENOTE ---
patient in bed. AAO x3 Denies pain. BP via left upper arm 108/[address] 106; RR 25; 96/2L. Lungs clear. Bladder scanned >500; Bladder empty via straight cath 400 clear yonny. Urine specimen sent per current order. 3% infusing at 40/hr BMP send
results pending . Will continue to monitor caLL SANTOS WITHIN REACH
[2024-03-17 18:08] LABS: Amphetamines Negative (Negative); Barbiturates Negative (Negative); Benzodiazepines Positive (Negative); Buprenorphine Negative (Negative); Cocaine Negative (Negative); Marijuana Positive (Negative); Methadone Negative (Negative); Methamphetamines Negative (Negative); Opiates Negative (Negative); Phencyclidine Negative (Negative); Tricyclic Antidepressants Negative (Negative)
[2024-03-17 18:18] LABS: Blood Urea Nitrogen 14 mg/dl (9-20); Calcium 8.3 mg/dl (8.4-10.2); Carbon Dioxide 24 mmol/L (22-30); Chloride 94 mmol/L (98-107); Estimated Creatinine Clearance 94 ml/min; Glucose 104 mg/dl (70-99); Potassium 4.2 mmol/L (3.5-5.1); Sodium 126 mmol/L (135-145); eGFR > 60.00
[2024-03-17 18:23] LABS: Troponin I 0.019 ng/ml
[2024-03-17 18:25] LABS: Fentanyl, Urine Negative (Negative)
--- NOTE | 2024-03-17 20:00 | PTCARENOTE ---
Assumed care of patient, Patient AOx3, laying in bed comfortably. Patient assessed, see work list, VSS. Patient has 3% saline running at 40cc/hr. Patient has complaints of temporal headache, tylenol given, melatonin ordered for sleep as well. Call
ngo within reach. Repeat CMP ordered for 2344, patient aware of plan. Will continue to monitor.
[2024-03-17] MEDS: MELATONIN 5 MG PO (21:30)
[2024-03-18] VITALS (22 sets, daily range): BP systolic 83–112; BP diastolic 54–81; BMI 23.5
[2024-03-18 00:41] LABS: Blood Urea Nitrogen 12 mg/dl (9-20); Calcium 7.7 mg/dl (8.4-10.2); Carbon Dioxide 23 mmol/L (22-30); Chloride 99 mmol/L (98-107); Estimated Creatinine Clearance 108 ml/min; Glucose 100 mg/dl (70-99); Sodium 123 mmol/L (135-145); eGFR > 60.00
--- NOTE | 2024-03-18 02:20 | PTCARENOTE ---
Patient had 14 bt run of VT, patient sleeping, asymptomatic. BP stable. CREATIVE SPECIALIST notified. Labs were just drawn, electrolytes minus sodium are ok. No change in assessment.
[2024-03-18 04:44] LABS: Hematocrit 41.1 % (39.0-52.0); Mean Corp Hgb Conc. 36.5 g/dL (33.0-37.0); Mean Corpuscular Hgb 32.2 pg (27.0-31.0); Mean Corpuscular Volume 88.2 fL (80.0-94.0); Mean Platelet Volume 9.6 fL (7.4-10.4); Platelet Count 154 10^3/uL (130-400); Red Blood Cell Count 4.66 10^6/uL (4.70-6.10); Red Cell Dist. Width 13.4 % (11.5-14.5); White Blood Cell Count 12.5 10^3/uL (4.8-10.8)
[2024-03-18 05:39] LABS: ALT (SGPT) 61 U/L (0-50); AST (SGOT) 83 U/L (17-59); Alkaline Phosphatase 80 U/L (38-126); Blood Urea Nitrogen 12 mg/dl (9-20); Calcium 8.1 mg/dl (8.4-10.2); Carbon Dioxide 21 mmol/L (22-30); Chloride 100 mmol/L (98-107); Creatine Phosphokinase 253 U/L (55-170); Estimated Creatinine Clearance 94 ml/min; Glucose 99 mg/dl (70-99); Magnesium 1.8 mg/dl (1.6-2.3); Potassium 4.2 mmol/L (3.5-5.1); Sodium 126 mmol/L (135-145); Total Bilirubin 0.5 mg/dl (0.2-1.3); eGFR > 60.00
[2024-03-18 07:20] LABS: Absolute Neutrophils -Man Diff 10.2 10^3/uL (1.4-6.5); Atypical Lymphocytes 1 %; Band Neutrophils 21 % (0-3); Lymphocytes 10 % (20-51); Monocytes 7 % (2-9); Segmented Neutrophils 61 % (42-75)
[2024-03-18 07:21] LABS: Acanthocytes 1+; Anisocytosis 1+; Hypochromasia Slight; Normal RBC Morphology No; Ovalocytes 1+; Platelets Checked Yes; Polychromasia Slight; Total Cells Counted 100
--- NOTE | 2024-03-18 07:59 | W.PN.INTV ---
Today's Communication / Plan
Recommendations
Hyponatremia mgmt
NRT
F/u BCMA
Assessment
-
Assessment:
Mr Ramses Rg is a 68/M adm 03-16 with acute confusion and falls at home. Reportedly developed cough, fever and aches over the weekend, thought he had the flu and took OTC APAP with some relief, then developed diarrhea. Returned from work on
03-16, found by very confused, somewhat agitated and with nonsensical talk, sustained up to 3 falls at home, presented diarrhea with fecal incontinence. Besides h/o splenectomy at age 14 (trauma), ankle surgeries, hernia repair in Dec 2023 and
heavy smoking, no other PMH, not on prescribed meds. At ER, fever 104.7, mild tachycardia, tachypnea, hypertension, serum Na 120
Impression:
Severe hyponatremia
TME
Strep pyogenes bacteriemia, unknown source
Elevated PCT
Mild transaminitis, ^CK
Troponin elevation
Normal TSH and random cortisol
Hematuria, bacteriuria, albuminuria
COVID/flu negative
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
Ankle surgeries
Hernia repair in Dec 2023
Smoker: 1 ppd for 50+ y
Marijuana smoking
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 Denies sandblasting, mining, quarrying, ceramic work
Plan:
O2 protocol as needed
Currently resp mares comfortable on RA
Asp precs
Monitor MS, seems has recovered to normal at this juncture
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
Blood cxs 03-16: Strep pyogenes
03-17 pending
UCx negative
MRSA screening negative
Sputum cx ordered
Elevated PCT
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
Empiric atbs started: cefepime, vanco, doxy IV
Adjusted by ID to ceftriaxone
F/u CXR PA/lat 03-18: emphysematous lung mckee, no significant interstitial changes, no evidence of pneumonia
Note h/o splenectomy
Received 3% saline IV, repeat dose 03-18
Follow serum Na closely, slowly improving
Laureen>40 and Uosm>100, normal TSH c/w SAIDH of unknown etiology
Not on medications which could cause SAIDH, but tobacco dependence, marijuana use and suspected underlying pulm disease
SIADH in this case could be secondary to pulmonary disease or malignancy
UDS positive for bzd (received lorazepam at ER upon adm) and marijuana
HIV pending
Normal random cortisol
Renal following
Regular diet
Enoxaparin DVT proph
Needs to follow with [facility] upon d/c, he agrees
Agree to NRT
D/w and Mrs Rg and their son at bedside
Can transfer to telemetry, will sign off then
Subjective Dataa
Subjective Data
Date of Service:
Date of Service: March 18, 2024
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
Subjective:
No major events reported overnight
No change in chronic dry cough, patient could not provide sputum sample
Mental status significantly improved, per RN, intermittent mild confusion history of present
Review of Systems
General: Fever (n), Sweats (n), Chills (n) and Satisfactory Appetite
HEENT: Epistaxis (n) and Dysphagia (n)
Cardiopulmonary: Dyspnea (n), Cough (mild dry chronic), Wheezing (n), Chest Pain (n), Edema (n) and Hemoptysis (n)
GI: Abdominal Pain (n), Nausea (n) and Vomiting (n)
Neuro: Weakness
Objective Data
Data Reviewed
Vital Signs / I&O / Oxygen:
Vital Signs
Temp Pulse Resp BP Pulse Ox
98.1 F 91 27 95/73 91
03/18/24 07:20 03/18/24 06:00 03/18/24 06:00 03/18/24 06:00 03/18/24 06:00
Intake and Output
03/17/24 03/18/24 03/19/24
06:59 06:59 06:59
Intake Total 385 / 410 2095 / 2095
Output Total 1075 / 1075
Balance 385 / 410 1020 / 1020
SaO2 91
Physical Exam
General: Comfortable
HEENT: Normocephalic and Moist Mucous Membranes
Cardiovascular: Regular Rhythm, Murmur (n), JVD (n), Peripheral Edema (n) and Calf Tenderness (n)
Respiratory: Rhonchi (trace), Non-Labored Respirations and Stridor (n)
GI: Soft, Non Distended and Non Tender
Neurology: Awake, Oriented and No Motor Deficits
Skin: Warm
Labs/Micro/Reports
Lab Data
03/18/24 04:37
03/18/24 04:37
Microbiology
03/17/24 10:03 Nose Nasal Screen MRSA (PCR) - Final
MRSA not detected - performed by PCR methodology.
03/16/24 21:56 Blood/Venous Blood Culture - Preliminary
Streptococcus pyogenes
03/16/24 21:56 Blood/Venous Gram Stain - Final
03/16/24 21:56 Blood/Venous Blood Culture - Preliminary
Positive culture in progress
03/16/24 21:56 Blood/Venous Gram Stain - Final
03/16/24 22:01 Urine Legionella Urinary Antigen - Final
Negative for Legionella pneumophila Serogroup 1 antigen.
A negative result does not rule out the possiblity of
Legionella infection due to other serogroups or species of
Legionella. Clinical correlation is recommended.
03/16/24 22:01 Urine Streptococcus pneumoniae Antigen (M - Final
Negative for Streptococcus pneumoniae antigen.
A negative result does not exclude infection with
Streptococcus pneumoniae. Clinical correlation is
recommended.
03/16/24 21:56 Nasal Swab Influenza Types A & B (ALISON) - Final
Negative for Influenza A & B, NAAT
Negative results must be combined with clinical observations
and patient history.
Nucleic Acid Amplification test (NAAT)performed on the
[employer] platform.
--- NOTE | 2024-03-18 08:00 | PTCARENOTE ---
Received pt awake and alert. He is forgetful. and is not able to recall some events of his hospitalization. He was informed of the plan of care regarding the importance of correcting his Sodium slowly to avoid any undesirable effects, calling for RN
if he needs to have a BM or stand to urinate. He was reminded that he was unsteady on his feet early this morning. Left FA#18g protective catheter flushed and patent. Good peripheral pulses, no edema. Lungs diminished in the bases but CTA. He was on
2 liters nasal canula overnight but is currently on RA with O2sat 92%. +hyperactive BSx4. He attributed that to feeling hungry. Per Dr. Bey he may eat regular diet. No fluid restriction ordered however I did inform him to avoid any cups of water
due to his excess of water in his system currently. He verbalized his understanding. Safe environment maintained.
--- NOTE | 2024-03-18 08:15 | W.PN.ID1 ---
Date of Service
Date of Service: March 18, 2024
Today's Communication
Continue antibiotics
Assessment / Plan
Group A strep bacteremia
Invasive Strep pyogenes disease
Leukocytosis
Encephalopathy; likely TME
Transaminitis
- Remain elevated bu stable
Hyponatremia
Hx splenectomy
Recommendations:
Continue ceftriaxone 2 g IV every 24 hours.
Repeat blood cultures to assess clearance.
Monitor white count and temperature curve.
Check Hep C ab.
����������������������������������������������������������
Chief Complaint
-: Bacteremia
Subjective / Review of Systems
Patient seen and examined. Reports still feeling 'foggy'. Temperature curve improving. Patient reports no history of recent cellulitis with abrasion or skin infection.
Vital Signs / Physical Exam
Vital Signs
Vital Signs
Temp Pulse Resp BP Pulse Ox
98.1 F 91 27 95/73 91
03/18/24 07:20 03/18/24 06:00 03/18/24 06:00 03/18/24 06:00 03/18/24 06:00
Physical Exam
Constitutional: No Acute Distress, Comfortable and Non-toxic
Eyes: No Conjunctival Hemorrhage and Sclera Anicteric
Cardiovascular: Regular Rate and S1/S2; Negative S3/S4
Pulmonary: Clear; Negative Wheezes, Rales or Rhonchi
Gastrointestinal: Soft, Non Tender, Non Distended and Normal Bowel Sounds
Extremities: Negative Edema, Cyanosis or Erythema
Skin: Warm and Dry; Negative Rash or Jaundice
Neurological: Awake, Alert and Oriented
Psychological: Calm
Objective Data
Lab Data
Lab Results
03/18/24 04:37
03/18/24 04:37
WBC 15.1 -> 17.2 -> 12.5
PT 15.4 Sec (11.4-14.6) H 03/17/24 04:30
INR 1.21 03/17/24 04:30
APTT 35.0 Sec (23.4-35.0) 03/17/24 04:30
Estimated Creat Clear 94 ml/min 03/18/24 04:37
Lactic Acid 1.4 mmol/L (0.7-2.0) 03/16/24 21:37
Total Bilirubin 0.5 mg/dl (0.2-1.3) 03/18/24 04:37
AST 83 U/L (17-59) H 03/18/24 04:37
ALT 61 U/L (0-50) H 03/18/24 04:37
Alkaline Phosphatase 80 U/L (38-126) 03/18/24 04:37
Most recent labs reviewed.
Micro Results:
03/17/24 13:07 Blood Culture - Pending
Blood/Venous
03/17/24 13:17 Blood Culture - Pending
Blood/Venous
03/17/24 10:03 Nasal Screen MRSA (PCR) - Final
Nose MRSA not detected - performed by PCR methodology.
03/16/24 21:56 Blood Culture - Preliminary
Blood/Venous Streptococcus pyogenes
Gram Stain - Final
03/16/24 21:56 Blood Culture - Preliminary
Blood/Venous Positive culture in progress
Gram Stain - Final
03/16/24 22:01 Legionella Urinary Antigen - Final
Urine Negative for Legionella pneumophila Serogroup 1 antigen.
A negative result does not rule out the possiblity of
Legionella infection due to other serogroups or species of
Legionella. Clinical correlation is recommended.
Streptococcus pneumoniae Antigen (M - Final
Negative for Streptococcus pneumoniae antigen.
A negative result does not exclude infection with
Streptococcus pneumoniae. Clinical correlation is
recommended.
03/16/24 21:56 Influenza Types A & B (ALISON) - Final
Nasal Swab Negative for Influenza A & B, NAAT
Negative results must be combined with clinical observations
and patient history.
Nucleic Acid Amplification test (NAAT)performed on the
[facility] ID NOW platform.
03/16/24 22:01 Urine Culture - Pending
Urine
--- NOTE | 2024-03-18 08:27 | W.PN.NEPH.PH ---
Today's Communication / Plan
-
lytes at 3pm
3% saline again
Assessment/Plan
-
Assessment:
Sepsis
Toxic metabolic encephalopathy
Hyponatremia
HypoMg
Plan:
- urine osm of 801 and urine Na of 81 very consistent with SIADH
-serum sodium up to 126 from 122
-will continue 3% saline for another 250cc as bp low side
- due to his urine osm of 801, he might require lasix to increase free water excretion but will see Na on next check prior to initiating
- check TSH (especially in the setting of very very mild CPK elevation)
-follow up lytes at 3pm
-
-
Date of Service: March 18, 2024
CC / HPI / ROS
-
Chief Complaint:
Hyponatremia
History of Present Illness:
serum sodium up to 126 after 3% given
hemodynamically stable but low side
Review of Systems:
uop via flores non oliguri
no sob or chest pain
no fevers today
Labs
-
Labs:
WBC 12.5 10^3/uL (4.8-10.8) H 03/18/24 04:37
RBC 4.66 10^6/uL (4.70-6.10) L 03/18/24 04:37
Hgb 15.0 g/dL (13.0-18.0) 03/18/24 04:37
Hct 41.1 % (39.0-52.0) 03/18/24 04:37
Plt Count 154 10^3/uL (130-400) 03/18/24 04:37
Sodium 126 mmol/L (135-145) L 03/18/24 04:37
Potassium 4.2 mmol/L (3.5-5.1) 03/18/24 04:37
Chloride 100 mmol/L (98-107) 03/18/24 04:37
Carbon Dioxide 21 mmol/L (22-30) L 03/18/24 04:37
BUN 12 mg/dl (9-20) 03/18/24 04:37
Creatinine 0.8 mg/dL (0.7-1.3) 03/18/24 04:37
eGFR > 60.00 03/18/24 04:37
Glucose 99 mg/dl (70-99) 03/18/24 04:37
Calcium 8.1 mg/dl (8.4-10.2) L 03/18/24 04:37
Albumin 3.0 g/dl (3.5-5.0) L 03/18/24 04:37
Physical Exam
-
Vital Signs:
Vital Signs
Temp Pulse Resp BP Pulse Ox
98.1 F 91 27 95/73 91
03/18/24 07:20 03/18/24 06:00 03/18/24 06:00 03/18/24 06:00 03/18/24 06:00
Cardiovascular:: Regular rate and rhythm
Respiratory:: Bilateral: CTA
Lung Excursion:: Normal
Abdomen:: Nontender
Bowel Sounds:: Normal
Extremity Edema:: None: Bilateral:
Flores Catheter: Yes
--- NOTE | 2024-03-18 09:38 | W.PN.HOSP.TC ---
Addendum entered and electronically signed by Ning Bey MD 03/18/24 15:47:
# non-traumatic rhabdomyolysis
Original Note:
Today's Communication/Plan
-
see A/P
Assessment / Plan
Assessment / Plan
HPI: 68y M with no significant PMH who presented to ED for evaluation of confusion and falls. History obtained from family at the bedside and discussion with ED staff.
Family notes that patient began to have symptoms including cough, fevers and aches this past weekend. He presumed he had the flu and drank Gatorade, took Tylenol, etc with some relief in his symptoms. His initial cough seemed to improve per
family; however, patient continued to complain of feeling 'sick'. Patient then developed diarrhea / loose stools and had an episode of incontinence.
On DOA, he went to work as usual and seemed his usual self according to family.
In the afternoon his returned home to find him very confused and somewhat agitated. Patient was trying to put on a blanket as if it were his pants. He was speaking gibberish / nonsense.
He was unsteady on his feet and had a total of 3 falls at home. He had two additional episodes of loose stools / incontinence at some point during the day.
Patient has had no recent travel. There are no known sick contacts.
He takes no daily medications.
A/P:
# Sepsis POA with Strep pyogenes bacteremia
# Acute TME secondary to the above, TME has resolved
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 There are no acute intracranial abnormalities.
COVID and influenza are negative, Urine Legionella/Strep Ag negative
procal elevated at 3.47
Blood Cx with Strep pyogenes, Follow repeat blood Cx until clearance
urine Cx was sent, can follow up
Lyme serology was sent, can follow up
IV cefepime/vancomycin -> ceftriaxone per ID
ID on board
Cont supportive care including antipyretics, antiemetics.
# Hyponatremia due to SIADH
CT head was unremarkable.
3% saline per renal
TSH and random cortisol level WNL
Renal on board
# Mild rhabdomyolysis
CPK improved from 399 to 253 today
can cont follow
# Non-ischemic myocardial injury
Pt denies to CP
# Hypomagnesemia
repleted IV
# Elevated LFT likely reactive due to current sepsis
trend LFT
DVT Prophylaxis: Lovenox
Code Status: Full
DW RN
DW and son at bedside
CC mx for bacteremia and persistent hyponatremia/hypotension
Anticipated Discharge: 24 - 48 hours
Subjective/Interval History
-
Date of Service: March 18, 2024
Objective Data
-
Labs:
Laboratory Results
03/18/24 03/18/24 03/18/24
00:10 04:37 15:00
WBC 12.5 H
Hgb 15.0
Hct 41.1
Plt Count 154
Sodium 123 L 126 L Pending
Potassium 4.0 4.2 Pending
Chloride 99 100 Pending
Carbon Dioxide 23 21 L Pending
BUN 12 12
Creatinine 0.7 0.8
Glucose 100 H 99
Calcium 7.7 L 8.1 L
Total Bilirubin 0.5
AST 83 H
ALT 61 H
Alkaline Phosphatase 80
Vital Signs:
Vital Signs
Temp Pulse Resp BP Pulse Ox
36.7 C 91 27 95/73 91
03/18/24 07:20 03/18/24 06:00 03/18/24 06:00 03/18/24 06:00 03/18/24 06:00
I&O
03/17/24 03/18/24 03/19/24
06:59 06:59 06:59
Intake Total 385 / 410 2094
Output Total 5 / 1075
Balance 385 / 410 1020 / 1020
Review of Systems
-
All other systems: Reviewed and negative
Physical Exam
-
General: Well Developed, Well Nourished, No Apparent Distress, Comfortable and Conversant; Negative Respiratory Distress
HEENT: Normocephalic, Atraumatic, Nose Appears Normal and Ears Appear Normal; Negative Oxygen
Respiratory: Clear to Auscultation and Non Labored Respirations; Negative Accessory Resp Muscle Use
Cardiac: Regular Rhythm and S1/S2
GI: Soft, Nontender, Nondistended and Normal Bowel Sounds
Skin: Warm and Dry
Neuro: Awake and Alert
Psych: Calm and Intact Judgement/Insight
Data Reviewed
-
Diagnostic Radiology: Report Reviewed by me
CT Scan: Report Reviewed by me
Labs: Labs Reviewed by me
[2024-03-18] MEDS: SODIUM CHLORIDE 3% 250 IV (09:48)
[2024-03-18 10:38] LABS: Hepatitis C Antibody Negative (Negative)
[2024-03-18] MEDS: MAG-TAB SR 84 MG PO ×2 (11:59→19:58)
[2024-03-18] MEDS: NICODERM TRANSDERMAL 21 MG TRANSDERM (11:59)
--- NOTE | 2024-03-18 12:47 | CM ---
CM following re:discharge planning.
Discussed in Rounds, reviewed pt's chart, met with pt. pt's spouse and pt's son Micky at bedside.
Per Rounds meeting, pt is admitted for treatment of Sepsis POA with Strep pyogenes bacteremia. Pt stated he did not feel well at home and he fell.
Pt reports he lives with spouse, 2 sons and a dog in a 2SH. 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 No DME, VN or SNF history. Pt expressed his desire to return back [place]iana at discharge. Pt reports he feels much better. IMM
reviewed, placed in chart, pt has a copy.
PT and OT evaluations are pending.
D/C plan: home with most likely VN services if recommended by PT/OT.
CM will follow with discharge plan updates as hospitalization progresses
--- NOTE | 2024-03-18 12:48 | PN.CDI ---
CDI
- -
CDI:
Physician Documentation Request
Admit Date: 03/17/24 03:44
Dear Doctor Sotero,
Patient admitted with sepsis.
Hospitalist progress note states mild rhabdomyolysis
Please clarify the type of rhabdomyolysis
traumatic
non-traumatic
Other
Use of terms such as suspected, likely, concern for, or probable (associated with a specific diagnosis that is being evaluated, monitored, or treated as if it exists) are acceptable and can be coded in the inpatient setting, when documented at the
time of discharge.
Thank you,
Rani Ding RN, BSN
CDI Specialist
tiger text
Please use your independent medical judgment in providing your response.
--- NOTE | 2024-03-18 13:30 | PTCARENOTE ---
OOB to chair for CXR in radiology department. Tolerated it well. He remained in the bedside chair when he returned to the room. Intermittent moist non-productive cough. Family remains at the bedside. He reported improved appetite.
[2024-03-18] MEDS: ROCEPHIN 2000 MG IV (14:22)
[2024-03-18] MEDS: STERILE WATER FOR INJECTION 20 ML IV (14:23)
[2024-03-18 16:56] LABS: Carbon Dioxide 24 mmol/L (22-30); Chloride 103 mmol/L (98-107); Potassium 3.7 mmol/L (3.5-5.1); Sodium 130 mmol/L (135-145)
--- NOTE | 2024-03-18 17:09 | PTCARENOTE ---
Dr. Cunha aware of recent BMP results. Will allow remainder of 3% sodium chloride drip to infuse. Also will place pt on 40oz fluid restriction as ordered.
[2024-03-18] MEDS: LOVENOX 40 MG SC (17:39)
[2024-03-18 19:24] LABS: HIV Combo Negative (Negative)
--- NOTE | 2024-03-18 20:00 | PTCARENOTE ---
Assumed care of patient at 1900, nursing assessment completed and as documented. Patient Ox3 but forgetful at time's, neurochecks as documented, see worklist. SR/ST with PAC's on monitor, +PP. Noted to have brief episodes of ST into the 160's while
turning in bed but patient asymptomatic, vitals unchanged. SBP soft 90's-100's. On RA lung sounds with crackles at B/L bases and coarse/diminished throughout. Patient voiding yonny urine in urinal at bedside. Noted abrasions to nose and left ear.
Patient denies pain at this time. PM medications given without difficulty, answered all questions related to POC, family at bedside. Bed alarmed, call ngo within reach, care ongoing.
[2024-03-18] MEDS: MELATONIN 5 MG PO (21:05)
[2024-03-19] VITALS (21 sets, daily range): BP systolic 85–122; BP diastolic 57–90; PULSE 77; BMI 23.5
--- NOTE | 2024-03-19 | PTCARENOTE ---
No changes to physical assessment. Patient noted to have runs of ST rates 160's and 7 beat run of Vtach on monitor, patient asymptomatic. Telemetry strips recorded and in chart. [employer] made aware. Follow up with AM labs. Patient ambulated to bathroom
x1 assist for standby. Call ngo within reach, bed alarmed, VSS, care ongoing.
[2024-03-19] MEDS: TYLENOL 650 MG PO (02:41)
[2024-03-19 04:11] LABS: Hematocrit 37.8 % (39.0-52.0); Hemoglobin 13.7 g/dL (13.0-18.0); Mean Corp Hgb Conc. 36.2 g/dL (33.0-37.0); Mean Corpuscular Hgb 31.5 pg (27.0-31.0); Mean Corpuscular Volume 86.9 fL (80.0-94.0); Mean Platelet Volume 9.9 fL (7.4-10.4); Nucleated Red Blood Cells % 0 % (-); Platelet Count 145 10^3/uL (130-400); Red Blood Cell Count 4.35 10^6/uL (4.70-6.10); Red Cell Dist. Width 13.7 % (11.5-14.5); White Blood Cell Count 9.7 10^3/uL (4.8-10.8)
[2024-03-19 04:44] LABS: ALT (SGPT) 47 U/L (0-50); AST (SGOT) 57 U/L (17-59); Albumin 2.7 g/dl (3.5-5.0); Alkaline Phosphatase 90 U/L (38-126); Blood Urea Nitrogen 14 mg/dl (9-20); Carbon Dioxide 25 mmol/L (22-30); Chloride 101 mmol/L (98-107); Creatine Phosphokinase 89 U/L (55-170); Estimated Creatinine Clearance 108 ml/min; Glucose 107 mg/dl (70-99); Magnesium 1.9 mg/dl (1.6-2.3); Potassium 3.6 mmol/L (3.5-5.1); Sodium 130 mmol/L (135-145); Total Bilirubin 0.3 mg/dl (0.2-1.3); Total Protein 5.7 g/dl (6.3-8.2); eGFR > 60.00
--- NOTE | 2024-03-19 04:59 | PTCARENOTE ---
0400 No changes to physical assessment, labs drawn and sent. Patient resting comfortably, VSS, callbell wtihin reach, bed alarmed.
[2024-03-19 05:06] LABS: Absolute Neutrophils -Man Diff 5.4 10^3/uL (1.4-6.5); Atypical Lymphocytes 5 %; Band Neutrophils 12 % (0-3); Lymphocytes 31 % (20-51); Monocytes 7 % (2-9); Normal RBC Morphology No; Platelets Checked Yes; Segmented Neutrophils 44 % (42-75)
[2024-03-19 05:08] LABS: Anisocytosis 1+
[2024-03-19 05:09] LABS: Burr Cells 1+; Howell Jolly Bodies RARE; Total Cells Counted 100
--- NOTE | 2024-03-19 07:17 | W.PN.INTV ---
Today's Communication / Plan
Recommendations
Atbs per ID
Reconsult prn
Assessment
-
Assessment:
Mr Ramses Rg is a 68/M adm 03-16 with acute confusion and falls at home. Reportedly developed cough, fever and aches over the weekend, thought he had the flu and took OTC APAP with some relief, then developed diarrhea. Returned from work on
03-16, found by very confused, somewhat agitated and with nonsensical talk, sustained up to 3 falls at home, presented diarrhea with fecal incontinence. Besides h/o splenectomy at age 14 (trauma), ankle surgeries, hernia repair in Dec 2023 and
heavy smoking, no other PMH, not on prescribed meds. At ER, fever 104.7, mild tachycardia, tachypnea, hypertension, serum Na 120
Impression:
Severe hyponatremia
TME
Strep pyogenes bacteriemia, unknown source
Elevated PCT
Mild transaminitis, ^CK
Troponin elevation
Normal TSH and random cortisol
Hematuria, bacteriuria, albuminuria
COVID/flu negative
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
Ankle surgeries
Hernia repair in Dec 2023
Smoker: 1 ppd for 50+ y
Marijuana smoking, 1/2 joint daily for many y
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 Denies sandblasting, mining, quarrying, ceramic work
Plan:
O2 protocol as needed
Currently resp mares comfortable on RA
Asp precs
Monitor MS, seems has recovered to normal at this juncture
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
Blood cxs 03-16: Strep pyogenes
pending
UCx negative
MRSA screening negative
Sputum cx ordered: dry cough, did not produce sample
Elevated PCT
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
Empiric atbs started: cefepime, vanco, doxy IV
Adjusted by ID to ceftriaxone
F/u CXR PA/lat 03-18: emphysematous lung mckee, no significant interstitial changes, no evidence of pneumonia
Note h/o splenectomy
Received 3% saline IV, repeat dose 03-18
Follow serum Na closely, slowly improving, currently up to 130
Laureen>40 and Uosm>100, normal TSH c/w SAIDH of unknown etiology
Not on medications which could cause SAIDH, but tobacco dependence, marijuana use and suspected underlying pulm disease (emphysema)
SIADH in this case could be secondary to pulmonary disease or malignancy
UDS positive for bzd (received lorazepam at ER upon adm) and marijuana
HIV negative
Normal random cortisol
Renal following
Regular diet
Enoxaparin DVT proph
Needs to follow with [facility] upon d/c, he and agreed
Agree to NRT
Strongly advised to quit tobacco and marijuana smoking
D/w and Mrs Rg
Agrees to follow with [facility] for h/o smoking, emphysema/COPD, LDCT, etc
Can transfer to [facility], reconsult prn
Subjective Dataa
Subjective Data
Date of Service:
Date of Service: March 19, 2024
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
Objective Data
Data Reviewed
Vital Signs / I&O / Oxygen:
Vital Signs
Temp Pulse Resp BP Pulse Ox
97.9 F 68 5 97/63 95
03/19/24 03:29 03/19/24 06:00 03/19/24 06:00 03/19/24 06:00 03/19/24 06:00
Intake and Output
03/18/24 03/19/24 03/20/24
06:59 06:59 06:59
Intake Total 2094 / 2214 990 / 990
Output Total 1075 / 1075 475 / 475
Balance 1020 / 1140 515 / 515
SaO2 95
Physical Exam
General: Comfortable
HEENT: Normocephalic and Moist Mucous Membranes
Cardiovascular: Regular Rhythm, Murmur (n), JVD (n), Peripheral Edema (n) and Calf Tenderness (n)
Respiratory: Rhonchi (trace), Non-Labored Respirations and Stridor (n)
GI: Soft, Non Distended and Non Tender
Neurology: Awake, Oriented and No Motor Deficits
Skin: Warm
Labs/Micro/Reports
Lab Data
03/19/24 03:57
03/19/24 03:57
Microbiology
03/17/24 13:07 Blood/Venous Blood Culture - Preliminary
No Growth in 24 hours- Final report to follow
03/17/24 13:17 Blood/Venous Blood Culture - Preliminary
No Growth in 24 hours- Final report to follow
03/16/24 22:01 Urine Urine Culture - Final
NO GROWTH
03/16/24 21:56 Blood/Venous Blood Culture - Preliminary
Streptococcus pyogenes
03/16/24 21:56 Blood/Venous Gram Stain - Final
03/16/24 21:56 Blood/Venous Blood Culture - Preliminary
Streptococcus pyogenes
03/16/24 21:56 Blood/Venous Gram Stain - Final
03/17/24 10:03 Nose Nasal Screen MRSA (PCR) - Final
MRSA not detected - performed by PCR methodology.
03/16/24 22:01 Urine Legionella Urinary Antigen - Final
Negative for Legionella pneumophila Serogroup 1 antigen.
A negative result does not rule out the possiblity of
Legionella infection due to other serogroups or species of
Legionella. Clinical correlation is recommended.
03/16/24 22:01 Urine Streptococcus pneumoniae Antigen (M - Final
Negative for Streptococcus pneumoniae antigen.
A negative result does not exclude infection with
Streptococcus pneumoniae. Clinical correlation is
recommended.
03/16/24 21:56 Nasal Swab Influenza Types A & B (ALISON) - Final
Negative for Influenza A & B, NAAT
Negative results must be combined with clinical observations
and patient history.
Nucleic Acid Amplification test (NAAT)performed on the
[employer] platform.
[2024-03-19] MEDS: NICODERM TRANSDERMAL 21 MG TRANSDERM (08:05)
[2024-03-19] MEDS: MAG-TAB SR 84 MG PO ×2 (08:05→20:07)
--- NOTE | 2024-03-19 08:06 | W.PN.ID1 ---
Date of Service
Date of Service: March 19, 2024
Today's Communication
Continue abx.
Assessment / Plan
Group A strep bacteremia
Invasive Strep pyogenes disease
Leukocytosis
Encephalopathy; likely TME
- improved
Transaminitis
- improved
Hyponatremia
Hx splenectomy
Recommendations:
Continue ceftriaxone 2 g IV every 24 hours.
Repeat blood cultures NGTD
Monitor white count and temperature curve.
Hep C ab negative
Hopefully can transition to oral regimen in the next 36-48 hours
����������������������������������������������������������
Chief Complaint
-: Bacteremia
Subjective / Review of Systems
Review of Systems: No Fever and No Chills
Vital Signs / Physical Exam
Vital Signs
Vital Signs
Temp Pulse Resp BP Pulse Ox
97.9 F 68 5 97/63 95
03/19/24 07:36 03/19/24 06:00 03/19/24 06:00 03/19/24 06:00 03/19/24 06:00
Physical Exam
Constitutional: No Acute Distress, Comfortable and Non-toxic
Cardiovascular: S1/S2; Negative S3/S4
Pulmonary: Non Labored
Gastrointestinal: Non Distended
Neurological: Awake and Alert
Psychological: Calm
Objective Data
Lab Data
Lab Results
03/19/24 03:57
03/19/24 03:57
PT 15.4 Sec (11.4-14.6) H 03/17/24 04:30
INR 1.21 03/17/24 04:30
APTT 35.0 Sec (23.4-35.0) 03/17/24 04:30
Estimated Creat Clear 108 ml/min 03/19/24 03:57
Lactic Acid 1.4 mmol/L (0.7-2.0) 03/16/24 21:37
Total Bilirubin 0.3 mg/dl (0.2-1.3) 03/19/24 03:57
AST 57 U/L (17-59) 03/19/24 03:57
ALT 47 U/L (0-50) 03/19/24 03:57
Alkaline Phosphatase 90 U/L (38-126) 03/19/24 03:57
Most recent labs reviewed.
Micro Results:
03/19/24 03:57 Blood Culture - Pending
Blood/Venous
03/17/24 13:07 Blood Culture - Preliminary
Blood/Venous No Growth in 24 hours- Final report to follow
03/17/24 13:17 Blood Culture - Preliminary
Blood/Venous No Growth in 24 hours- Final report to follow
03/16/24 22:01 Urine Culture - Final
Urine NO GROWTH
03/18/24 08:46 Blood Culture - Pending
Blood/Venous
03/16/24 21:56 Blood Culture - Preliminary
Blood/Venous Streptococcus pyogenes
Gram Stain - Final
03/16/24 21:56 Blood Culture - Preliminary
Blood/Venous Streptococcus pyogenes
Gram Stain - Final
03/17/24 10:03 Nasal Screen MRSA (PCR) - Final
Nose MRSA not detected - performed by PCR methodology.
03/16/24 22:01 Legionella Urinary Antigen - Final
Urine Negative for Legionella pneumophila Serogroup 1 antigen.
A negative result does not rule out the possiblity of
Legionella infection due to other serogroups or species of
Legionella. Clinical correlation is recommended.
Streptococcus pneumoniae Antigen (M - Final
Negative for Streptococcus pneumoniae antigen.
A negative result does not exclude infection with
Streptococcus pneumoniae. Clinical correlation is
recommended.
03/16/24 21:56 Influenza Types A & B (ALISON) - Final
Nasal Swab Negative for Influenza A & B, NAAT
Negative results must be combined with clinical observations
and patient history.
Nucleic Acid Amplification test (NAAT)performed on the
[employer] ID NOW platform.
--- NOTE | 2024-03-19 08:25 | W.PN.NEPH.PH ---
Today's Communication / Plan
-
follow bmp
maintain FR
Assessment/Plan
-
Assessment:
Sepsis : group A strep bacteremia
Toxic metabolic encephalopathy
Hyponatremia
HypoMg
Hx of splenectomy
Plan:
- urine osm of 801 and urine Na of 81 very consistent with SIADH
-serum sodium up to 130 after second 3% given yesterday
-checked TSH (especially in the setting of very very mild CPK elevation)
-maintain FR 40oz daily
-remains hypotensive in setting of sepsis
-check pro BNP
-
-
Date of Service: March 19, 2024
CC / HPI / ROS
-
Chief Complaint:
Hyponatremia
History of Present Illness:
serum sodium up to 130 after 3% given
hemodynamically stable but low side
Review of Systems:
uop via flores non oliguri
no sob or chest pain
no fevers today
Labs
-
Labs:
WBC 9.7 10^3/uL (4.8-10.8) 03/19/24 03:57
RBC 4.35 10^6/uL (4.70-6.10) L 03/19/24 03:57
Hgb 13.7 g/dL (13.0-18.0) 03/19/24 03:57
Hct 37.8 % (39.0-52.0) L 03/19/24 03:57
Plt Count 145 10^3/uL (130-400) 03/19/24 03:57
Sodium 130 mmol/L (135-145) L 03/19/24 03:57
Potassium 3.6 mmol/L (3.5-5.1) 03/19/24 03:57
Chloride 101 mmol/L (98-107) 03/19/24 03:57
Carbon Dioxide 25 mmol/L (22-30) 03/19/24 03:57
BUN 14 mg/dl (9-20) 03/19/24 03:57
Creatinine 0.7 mg/dL (0.7-1.3) 03/19/24 03:57
eGFR > 60.00 03/19/24 03:57
Glucose 107 mg/dl (70-99) H 03/19/24 03:57
Calcium 8.0 mg/dl (8.4-10.2) L 03/19/24 03:57
Albumin 2.7 g/dl (3.5-5.0) L 03/19/24 03:57
Physical Exam
-
Vital Signs:
Vital Signs
Temp Pulse Resp BP Pulse Ox
97.9 F 70 16 99/81 95
03/19/24 07:36 03/19/24 08:00 03/19/24 08:00 03/19/24 08:00 03/19/24 08:00
Cardiovascular:: Regular rate and rhythm
Respiratory:: Bilateral: CTA
Lung Excursion:: Normal
Abdomen:: Nontender and Soft
Extremity Edema:: None: Bilateral:
Flores Catheter: No
--- NOTE | 2024-03-19 08:33 | W.PN.HOSP.TC ---
Addendum entered and electronically signed by Ning Bey MD 03/19/24 10:00:
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
Continue to monitor sodium level
Original Note:
Today's Communication/Plan
-
see A/P
Assessment / Plan
Assessment / Plan
HPI: 68y M with no significant PMH who presented to ED for evaluation of confusion and falls. History obtained from family at the bedside and discussion with ED staff.
Family notes that patient began to have symptoms including cough, fevers and aches this past weekend. He presumed he had the flu and drank Gatorade, took Tylenol, etc with some relief in his symptoms. His initial cough seemed to improve per
family; however, patient continued to complain of feeling 'sick'. Patient then developed diarrhea / loose stools and had an episode of incontinence.
On DOA, he went to work as usual and seemed his usual self according to family.
In the afternoon his returned home to find him very confused and somewhat agitated. Patient was trying to put on a blanket as if it were his pants. He was speaking gibberish / nonsense.
He was unsteady on his feet and had a total of 3 falls at home. He had two additional episodes of loose stools / incontinence at some point during the day.
Patient has had no recent travel. There are no known sick contacts.
He takes no daily medications.
A/P:
# Sepsis POA with Strep pyogenes bacteremia
# Acute TME secondary to the above, TME has resolved
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 There are no acute intracranial abnormalities.
COVID and influenza are negative, Urine Legionella/Strep Ag negative
Procal elevated at 3.47
Blood Cx with Strep pyogenes, repeat blood Cx cleared from 03/17
urine Cx negative
Lyme serology negative, HIV negative was sent- negative, hepatitis C was sent- negative
IV cefepime/vancomycin -> ceftriaxone per ID
ID on board
Cont supportive care including antipyretics, antiemetics.
# Hyponatremia due to SIADH
CT head was unremarkable.
3% saline per renal
TSH and random cortisol level WNL
Renal on board
# Mild rhabdomyolysis, resolved
CPK improved from 399 to 89
# Non-ischemic myocardial injury
Pt denies to CP
# Hypomagnesemia
repleted IV
# Elevated LFT likely reactive due to current sepsis, resolved
# Intermittent tachycardia likely due to PAC
EKG noted sinus tachy with PAC
Can check echo
DVT Prophylaxis: Lovenox
Code Status: Full
Dispo: PT OT eval
DW RN
Anticipated Discharge: 24 - 48 hours
Subjective/Interval History
-
Date of Service: March 19, 2024
Objective Data
-
Labs:
Laboratory Results
03/19/24
03:57
WBC 9.7
Hgb 13.7
Hct 37.8 L
Plt Count 145
Sodium 130 L
Potassium 3.6
Chloride 101
Carbon Dioxide 25
BUN 14
Creatinine 0.7
Glucose 107 H
Calcium 8.0 L
Total Bilirubin 0.3
AST 57
ALT 47
Alkaline Phosphatase 90
Vital Signs:
Vital Signs
Temp Pulse Resp BP Pulse Ox
36.6 C 70 16 99/81 95
03/19/24 07:36 03/19/24 08:00 03/19/24 08:00 03/19/24 08:00 03/19/24 08:00
I&O
03/18/24 03/19/24 03/20/24
06:59 06:59 06:59
Intake Total 2095 / 2215 990 / 990
Output Total 1074 / 1074 475 / 475
Balance 1020 / 1140 515 / 515
Review of Systems
-
All other systems: Reviewed and negative
Physical Exam
-
General: Well Developed, Well Nourished, No Apparent Distress, Comfortable and Conversant; Negative Respiratory Distress
HEENT: Normocephalic, Atraumatic, Nose Appears Normal and Ears Appear Normal; Negative Oxygen
Respiratory: Clear to Auscultation and Non Labored Respirations; Negative Accessory Resp Muscle Use
Cardiac: Regular Rhythm and S1/S2
GI: Soft, Nontender, Nondistended and Normal Bowel Sounds
Skin: Warm and Dry
Neuro: Awake and Alert
Psych: Calm and Intact Judgement/Insight
Data Reviewed
-
Diagnostic Radiology: Report Reviewed by me
CT Scan: Report Reviewed by me
Labs: Labs Reviewed by me
--- NOTE | 2024-03-19 09:51 | PTCARENOTE ---
Received pt this am in bed without complaint. Pt asked about test results/labs and if he had a head scan. c/o headache top of head. Refusing tylenol. Pt made aware that head ct was done and showed an old stroke. Stroke packet provided to pt to
review. Made aware that he should f/u with his primary doctor as outpt to discuss medications to prevent future strokes. Pt also counseled on quitting smoking. While sitting on bed, pt had short burst of tachycardia as high as 178. Pt completely
unaware. BP stable. Assisted minimally oob to chair and set pt up to brush teeth. He refused am care until present with home toiletries. Otherwise please refer to assessment. Call ngo in reach.
[2024-03-19] MEDS: NSS 500 IV (10:56)
[2024-03-19] MEDS: STERILE WATER FOR INJECTION 20 ML IV (13:38)
[2024-03-19] MEDS: ROCEPHIN 2000 MG IV (13:38)
[2024-03-19] MEDS: LOVENOX 40 MG SC (17:57)
[2024-03-19] MEDS: MELATONIN 5 MG PO (22:21)
[2024-03-20] VITALS (10 sets, daily range): BP systolic 99–122; BP diastolic 57–81; PULSE 75–95; BMI 23.7
[2024-03-20 04:38] LABS: Hematocrit 36.5 % (39.0-52.0); Hemoglobin 13.1 g/dL (13.0-18.0); Mean Corp Hgb Conc. 35.9 g/dL (33.0-37.0); Mean Corpuscular Hgb 31.9 pg (27.0-31.0); Mean Corpuscular Volume 88.8 fL (80.0-94.0); Mean Platelet Volume 10.3 fL (7.4-10.4); Platelet Count 172 10^3/uL (130-400); Red Blood Cell Count 4.11 10^6/uL (4.70-6.10); Red Cell Dist. Width 13.8 % (11.5-14.5); White Blood Cell Count 10.4 10^3/uL (4.8-10.8)
[2024-03-20 05:03] LABS: ALT (SGPT) 49 U/L (0-50); AST (SGOT) 55 U/L (17-59); Albumin 2.7 g/dl (3.5-5.0); Alkaline Phosphatase 97 U/L (38-126); Blood Urea Nitrogen 10 mg/dl (9-20); Calcium 8.1 mg/dl (8.4-10.2); Carbon Dioxide 27 mmol/L (22-30); Chloride 103 mmol/L (98-107); Creatine Phosphokinase 50 U/L (55-170); Estimated Creatinine Clearance > 125 ml/min; Glucose 97 mg/dl (70-99); Magnesium 1.8 mg/dl (1.6-2.3); Potassium 3.7 mmol/L (3.5-5.1); Sodium 132 mmol/L (135-145); Total Bilirubin 0.3 mg/dl (0.2-1.3); eGFR > 60.00
[2024-03-20 05:05] LABS: Absolute Neutrophils -Man Diff 5.4 10^3/uL (1.4-6.5); Atypical Lymphocytes 9 %; Band Neutrophils 4 % (0-3); Eosinophils 1 % (0-6); Lymphocytes 32 % (20-51); Monocytes 6 % (2-9); Segmented Neutrophils 48 % (42-75)
[2024-03-20 05:06] LABS: Anisocytosis Slight; Normal RBC Morphology No; Platelets Checked Yes; Poikilocytosis Slight; Target Cells Occasional
[2024-03-20 05:07] LABS: Burr Cells Slight; Total Cells Counted 100
--- NOTE | 2024-03-20 07:42 | W.PN.ID1 ---
Date of Service
Date of Service: March 20, 2024
Today's Communication
Continue antibiotics. See below�
Assessment / Plan
Group A strep bacteremia
- cleared
Invasive Strep pyogenes disease
Leukocytosis
- Resolved
Encephalopathy; likely TME
- resolved
Transaminitis
- improved
Hyponatremia
Hx splenectomy
Recommendations:
Continue ceftriaxone 2 g IV (next dose 14:00 today).
Thereafter, change to amoxicillin 1000 mg q8h, to continue through 03/30/2024
Will follow-up in the office in 2 to 3 weeks in regards to this recent hospitalization and postsplenectomy vaccinations.
����������������������������������������������������������
Chief Complaint
-: Bacteremia
Subjective / Review of Systems
Review of Systems: No Fever and No Chills
Vital Signs / Physical Exam
Vital Signs
Vital Signs
Temp Pulse Resp BP Pulse Ox
98.2 F 73 18 99/57 95
03/20/24 04:20 03/20/24 07:00 03/20/24 07:00 03/20/24 06:00 03/19/24 20:53
Physical Exam
Constitutional: No Acute Distress, Comfortable and Non-toxic
Cardiovascular: Regular Rate
Pulmonary: Non Labored
Gastrointestinal: Non Distended
Extremities: Negative Edema, Cyanosis or Erythema
Neurological: Awake and Alert; Negative Meningeal Signs
Psychological: Calm
Objective Data
Lab Data
Lab Results
03/20/24 04:18
03/20/24 04:18
PT 15.4 Sec (11.4-14.6) H 03/17/24 04:30
INR 1.21 03/17/24 04:30
APTT 35.0 Sec (23.4-35.0) 03/17/24 04:30
Estimated Creat Clear > 125 ml/min 03/20/24 04:18
Lactic Acid 1.4 mmol/L (0.7-2.0) 03/16/24 21:37
Total Bilirubin 0.3 mg/dl (0.2-1.3) 03/20/24 04:18
AST 55 U/L (17-59) 03/20/24 04:18
ALT 49 U/L (0-50) 03/20/24 04:18
Alkaline Phosphatase 97 U/L (38-126) 03/20/24 04:18
Most recent labs reviewed.
Micro Results:
03/19/24 03:57 Blood Culture - Preliminary
Blood/Venous No Growth in 24 hours- Final report to follow
03/17/24 13:07 Blood Culture - Preliminary
Blood/Venous No Growth in 48 hours- Final report to follow
03/17/24 13:17 Blood Culture - Preliminary
Blood/Venous No Growth in 48 hours- Final report to follow
03/18/24 08:46 Blood Culture - Preliminary
Blood/Venous No Growth in 24 hours- Final report to follow
03/16/24 21:56 Blood Culture - Final
Blood/Venous Streptococcus pyogenes
Gram Stain - Final
03/16/24 21:56 Blood Culture - Final
Blood/Venous Streptococcus pyogenes
Gram Stain - Final
03/16/24 22:01 Urine Culture - Final
Urine NO GROWTH
03/17/24 10:03 Nasal Screen MRSA (PCR) - Final
Nose MRSA not detected - performed by PCR methodology.
03/16/24 22:01 Legionella Urinary Antigen - Final
Urine Negative for Legionella pneumophila Serogroup 1 antigen.
A negative result does not rule out the possiblity of
Legionella infection due to other serogroups or species of
Legionella. Clinical correlation is recommended.
Streptococcus pneumoniae Antigen (M - Final
Negative for Streptococcus pneumoniae antigen.
A negative result does not exclude infection with
Streptococcus pneumoniae. Clinical correlation is
recommended.
03/16/24 21:56 Influenza Types A & B ([facility]) - Final
Nasal Swab Negative for Influenza A & B, NAAT
Negative results must be combined with clinical observations
and patient history.
Nucleic Acid Amplification test (NAAT)performed on the
[employer] platform.
Care Review
Plan reviewed with: Physician (Hospitalist)
--- NOTE | 2024-03-20 07:52 | W.PN.HOSP.TC ---
Addendum entered and electronically signed by Ning Bey MD 03/20/24 14:10:
total DC time 35 min
Original Note:
Today's Communication/Plan
-
see A/P
Assessment / Plan
Assessment / Plan
HPI: 68y M with no significant PMH who presented to ED for evaluation of confusion and falls. History obtained from family at the bedside and discussion with ED staff.
Family notes that patient began to have symptoms including cough, fevers and aches this past weekend. He presumed he had the flu and drank Gatorade, took Tylenol, etc with some relief in his symptoms. His initial cough seemed to improve per
family; however, patient continued to complain of feeling 'sick'. Patient then developed diarrhea / loose stools and had an episode of incontinence.
On DOA, he went to work as usual and seemed his usual self according to family.
In the afternoon his returned home to find him very confused and somewhat agitated. Patient was trying to put on a blanket as if it were his pants. He was speaking gibberish / nonsense.
He was unsteady on his feet and had a total of 3 falls at home. He had two additional episodes of loose stools / incontinence at some point during the day.
Patient has had no recent travel. There are no known sick contacts.
He takes no daily medications.
A/P:
# Sepsis POA with Strep pyogenes bacteremia
# Acute TME secondary to the above, TME has resolved
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 There are no acute intracranial abnormalities.
COVID and influenza are negative, Urine Legionella/Strep Ag negative
Procal elevated at 3.47
Blood Cx with Strep pyogenes, repeat blood Cx cleared from 03/17
urine Cx negative
Lyme serology negative, HIV negative was sent- negative, hepatitis C was sent- negative
IV cefepime/vancomycin -> ceftriaxone -> amoxicillin 1000 mg q8h, to continue through 03/30/2024 per ID
ID on board
Cont supportive care including antipyretics, antiemetics.
# Hyponatremia due to SIADH
CT head was unremarkable.
s/p 3% saline per renal
TSH and random cortisol level WNL
Renal on board
Sodium level 132 today
# Mild rhabdomyolysis, resolved
CPK improved from 399 to 89
# Non-ischemic myocardial injury
Pt denies to CP
# Hypomagnesemia
repleted IV
# Elevated LFT likely reactive due to current sepsis, resolved
# Intermittent tachycardia likely due to PAC
EKG noted sinus tachy with PAC
Can check echo outpt
DVT Prophylaxis: Lovenox
Code Status: Full
Dispo: PT OT cleared for home
DW ID
left voicemail to
Anticipated Discharge: Today
Subjective/Interval History
-
Date of Service: March 20, 2024
Objective Data
-
Labs:
Laboratory Results
03/20/24
04:18
WBC 10.4
Hgb 13.1
Hct 36.5 L
Plt Count 172
Sodium 132 L
Potassium 3.7
Chloride 103
Carbon Dioxide 27
BUN 10
Creatinine 0.6 L
Glucose 97
Calcium 8.1 L
Total Bilirubin 0.3
AST 55
ALT 49
Alkaline Phosphatase 97
Vital Signs:
Vital Signs
Temp Pulse Resp BP Pulse Ox
36.8 C 73 18 99/57 95
03/20/24 04:20 03/20/24 07:00 03/20/24 07:00 03/20/24 06:00 03/19/24 20:53
I&O
03/19/24 03/20/24 03/21/24
06:59 06:59 06:59
Intake Total 990 / 990 1100 / 1100
Output Total 475 / 475 1075 / 1075
Balance 515 / 515
Review of Systems
-
All other systems: Reviewed and negative
Physical Exam
-
General: Well Developed, Well Nourished, No Apparent Distress, Comfortable and Conversant; Negative Respiratory Distress
HEENT: Normocephalic, Atraumatic, Nose Appears Normal and Ears Appear Normal; Negative Oxygen
Respiratory: Clear to Auscultation and Non Labored Respirations; Negative Accessory Resp Muscle Use
Cardiac: Regular Rhythm and S1/S2
GI: Soft, Nontender, Nondistended and Normal Bowel Sounds
Skin: Warm and Dry
Neuro: Awake and Alert
Psych: Calm and Intact Judgement/Insight
Data Reviewed
-
Diagnostic Radiology: Report Reviewed by me
CT Scan: Report Reviewed by me
Labs: Labs Reviewed by me
--- NOTE | 2024-03-20 08:38 | W.PN.NEPH.PH ---
Today's Communication / Plan
-
Maintain fluid restriction
Sign off
Assessment/Plan
-
Assessment:
Sepsis : group A strep bacteremia
Toxic metabolic encephalopathy
Hyponatremia
HypoMg
Hx of splenectomy
Plan:
- urine osm of 801 and urine Na of 81 very consistent with SIADH
-serum sodium up to 132 after two doses of 3% saline
-checked TSH (especially in the setting of very very mild CPK elevation)
-maintain FR up to 48oz
-we will sign off
-
-
Date of Service: March 20, 2024
CC / HPI / ROS
-
Chief Complaint:
Hyponatremia
History of Present Illness:
serum sodium up to 132
hemodynamically stable but low side
Review of Systems:
uop via flores non oliguri
no sob or chest pain
no fevers
Labs
-
Labs:
WBC 10.4 10^3/uL (4.8-10.8) 03/20/24 04:18
RBC 4.11 10^6/uL (4.70-6.10) L 03/20/24 04:18
Hgb 13.1 g/dL (13.0-18.0) 03/20/24 04:18
Hct 36.5 % (39.0-52.0) L 03/20/24 04:18
Plt Count 172 10^3/uL (130-400) 03/20/24 04:18
Sodium 132 mmol/L (135-145) L 03/20/24 04:18
Potassium 3.7 mmol/L (3.5-5.1) 03/20/24 04:18
Chloride 103 mmol/L (98-107) 03/20/24 04:18
Carbon Dioxide 27 mmol/L (22-30) 03/20/24 04:18
BUN 10 mg/dl (9-20) 03/20/24 04:18
Creatinine 0.6 mg/dL (0.7-1.3) L 03/20/24 04:18
eGFR > 60.00 03/20/24 04:18
Glucose 97 mg/dl (70-99) 03/20/24 04:18
Calcium 8.1 mg/dl (8.4-10.2) L 03/20/24 04:18
Albumin 2.7 g/dl (3.5-5.0) L 03/20/24 04:18
Physical Exam
-
Vital Signs:
Vital Signs
Temp Pulse Resp BP Pulse Ox
98.0 F 73 18 99/57 95
03/20/24 07:20 03/20/24 07:00 03/20/24 07:00 03/20/24 06:00 03/19/24 20:53
Cardiovascular:: Regular rate and rhythm
Respiratory:: Bilateral: Coarse
Lung Excursion:: Normal
Abdomen:: Nontender
Bowel Sounds:: Normal
Extremity Edema:: None: Bilateral:
--- NOTE | 2024-03-20 09:36 | CM ---
CM following re: discharge planning.
Reviewed pt's chart, met with pt.
Discharge order is noted. Pt is aware, expressed his agreement with discharge and he stated his spouse will transport home. IMM reviewed, placed in chart, pt has a copy
CM consulted to arrange VN services. CM discussed it with the pt, a list of VN vendors provided, pt preferred [facility]. A referral to [facility] made.
Please fax discharge instructions to [facility] at [phone].
D/C plan: home with [facility] and family support. Spouse to transport
[2024-03-20] MEDS: MAG-TAB SR 84 MG PO (10:19)
[2024-03-20] MEDS: NICODERM TRANSDERMAL 21 MG TRANSDERM (10:19)
--- NOTE | 2024-03-20 11:35 | PTCARENOTE ---
0700 OOB chair. VSS. Denies pain /discomfort. AAO x3 at times forgetful SR 77. Voiding in a urinal dark yonny urine. Nicotine patch placed to left shoulder. patient placed on telemetry box. Ambulates independently no registered dental assistant rda devices require.
tolerating of food and liquid without difficulties. Aware of fluid restriction
--- NOTE | 2024-03-20 12:46 | W.DCSUMMARY ---
Discharge Summary
Discharge Data
Date of Admission: 03/17/24
Date of Discharge: 03/20/24
-
Pending Results: No
Hospital Course
Principal Diagnosis:
Sepsis on admission due to Strep pyogenes bacteremia
Confusion/ acute metabolic encephalopathy, resolved
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
Elevated liver enzymes likely reactive due to sepsis, resolved
Intermittent tachycardia likely due to Premature atrial contractions (PAC)
Chronic Diagnoses:�
None
Consultations:�
Infectious disease
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
Nephrology
Procedures:�
None
Clinical course:�
This is a 68 year old male with no significant past medical history, who presented with confusion and falls.
He had been feeling sick at home with some bowel bladder incontinence.
Problem 1:
Sepsis on admission due to Strep pyogenes bacteremia.
This was associated with confusion/ acute metabolic encephalopathy, which has resolved.
His admission CT head showed no acute intracranial abnormalities, but noted an old infarct in the left cerebellar hemisphere.
His COVID and influenza tests were negative. His urine Legionella/Strep antigens were negative too.
His Procalcitonin was elevated at 3.47 on admission.
His initial blood cultures grew Strep pyogenes, and repeat blood culture was cleared from 03/17.
His urine culture was negative.
He receive IV antibiotics cefepime/vancomycin initially, and these were changed to ceftriaxone, which was then changed to oral amoxicillin 1000 mg q8h, which he can continue through 03/30/2024 per ID.
Problem 2:
Hyponatremia due to SIADH.
The patient sodium level improved from 120 on admission to 132.
He received 3% normal saline while in the hospital per nephrology.
Of note, his TSH and random cortisol levels were within normal limit.
Problem 3:
Mild rhabdomyolysis, resolved.
His CPK improved from 399 to 89.
Problem 4:
Elevated liver enzymes likely reactive due to sepsis, resolved.
Problem 5:
Intermittent tachycardia likely due to PAC.
His EKG noted sinus tachy with PAC.
He can follow up with an echo outpatient.
As for the rest of his medical problems, they were stable during his hospital stay.
Discharge Plan
-
Patient Disposition: Home (Routine Discharge)
Discharge Diagnosis/Procedures: Sepsis with Strep pyogenes bacteremia; confusion due to infection (confusion has resolved); Hyponatremia due to SIADH; Intermittent tachycardia likely due to Premature atrial contractions
Condition: Fair
Diet: As tolerated
Activity: As tolerated
Driving Restrictions: As prior to admission
Wound Care: Your EKG noted sinus tachycardia with PAC. You can check echo outpatient.
Avoid smoking
Activity Restrictions/Additional Instructions:
Follow up with ID in 2 to 3 weeks to discuss postsplenectomy vaccinations
Referrals:
Doug Barker, [Active] - in two to three weeks
Jase Jimenes MD [Active] - (Heavy smoker, CXR with emphysematous changes. 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 Routine f/u 1 m p d/c)
UNKNOWN - PT NOT,INTERVIEWE [Family Provider] - in less than 1 week
Additional Discharge Medication Instructions: Continue amoxicillin 1000 mg every 8 hours through 03/30/2024
Prescriptions:
New
amoxicillin 500 mg tablet
1,000 mg PO Q8H 10 Days Qty: 60 0RF
acetaminophen 325 mg Tablet
650 mg PO Q4HPRN PRN (Reason: Mild Pain / Temp > 101) Qty: 20 0RF
Discharge Orders:
Discharge Patient (As Directed); Ordered 03/20/24
Ordered By: Ning Bey
Discharge Date and Time
Print Language: AZERI
[2024-03-20] MEDS: ROCEPHIN 2000 MG IV (14:02)
[2024-03-20] MEDS: STERILE WATER FOR INJECTION 20 ML IV (14:02)
--- NOTE | 2024-03-20 16:23 | PTCARENOTE ---
16:23 patient d/c to home. Transportation provided by patient's / All discharge instructions including medications and follow ups reviewed with patient and his . Patient verbalized comprehension of medications regiment and follow up
appointments. VSS before discharge. Peripheral line Left aC removed
== END 2024-03-20 16:54 | disposition home health service (06) | DRG 871 ==
LOC: ICU 03:44
PROVIDERS: Nurse Practitioner Primary Care; Specialist; ADMITTING PHYSICIAN Hospitalist; ATTENDING PHYSICIAN Internal Medicine; CONSULT PHYSICIAN Internal Medicine Infectious Disease; CONSULT PHYSICIAN Student in an Organized Health Care Education/Training Program; EMERGENCY PHYSICIAN Emergency Medicine; OTHER PHYSICIAN Internal Medicine Pulmonary Disease
DX: A40.0 Sepsis due to streptococcus, group A (principal); G92.8 Other toxic encephalopathy; E22.2 Syndrome of inappropriate secretion of antidiuretic hormone; M62.82 Rhabdomyolysis; I5A Non-ischemic myocardial injury (non-traumatic); F17.210 Nicotine dependence, cigarettes, uncomplicated; R65.20 Severe sepsis without septic shock; Z11.52 Encounter for screening for COVID-19; E83.42 Hypomagnesemia; I49.1 Atrial premature depolarization
CPT/HCPCS: 70450; 71045; 71046; 80048; 80051; 80053; 80306; 80307; 81003; 81015; 82248; 82533; 82550; 83605; 83735; 83930; 83935; 84145; 84300; 84443; 84484; 85025; 85027; 85610; 85730; 86618; 86803; 87040; 87086; 87149; 87205; 87389; 87449; 87502; 87641; 87811; 87899; 92610; 93005; 96361; 96365; 96375; 96376; 97162; 97166; 99291